=== PATIENT | male | born 1965 | race Caucasian/White ===

== ENCOUNTER 2022-09-19 14:03 | Outpatient (AMB) | payer OTHER, SELFPAY ==
--- NOTE | 2022-09-19 14:04 | MHC.OFFWIV ---
Intake Vital Signs 09/19/22 14:05 Height 5 ft 10 in BP 140/72 H Blood Pressure Location Lt brachial Position Sitting Pulse 85 Pulse Source Pulse Oximeter Temp 97.5 F Temp Source Temporal Artery Scan Pulse Oximetry (%) 97 Oxygen Delivery Method Room Air Intake Visit Reasons: EST/blood pressure issues/headaches Intake Note: Pt is here c/o having headaches and high bp. Patient Tobacco Use Status: Never used Tobacco Allergies No Known Allergies Allergy (Verified 09/19/22 14:05) Do you need a note to return to daycare/school/sports/work: No HPI HPI Comments History of Present Illness Details 57-year-old male that presents for headache and blood pressure concerns. Patient states that for the past 6 months he has been experiencing off and on headaches and thought that his blood pressure to be elevated today recently restarted his losartan again and. Edition he endorses some occasional fatigue and fluttering of his chest. Denies any chest pain or shortness of breath nausea vomiting cough, vision changes bladder or bowel symptoms weakness and difficulty speaking.. He has not seen his PCP in over a year but recently established care will be seeing them in November. [facility] Social History Patient Tobacco Use Status: Never used Tobacco Review of Systems Const All systems reviewed & are unremarkable except as noted in HPI and below Denies fever(s), Denies headache(s) and Denies weakness Eyes Reports no additional complaints ENT Reports no additional complaints and Denies headache(s) Card Reports no additional complaints, Denies chest pain, Denies leg edema and Denies dyspnea Resp Denies cough and Denies dyspnea GI Denies abdominal pain, Denies nausea and Denies vomiting Denies dysuria and Denies urinary frequency Musc Reports no additional complaints Neuro Denies headache(s) and Denies weakness Psych Reports no additional complaints Endo Reports no additional complaints Physical Exam Vital Signs: Last Vital Signs Temp 97.5 F 09/19/22 14:05 Pulse 85 09/19/22 14:05 BP 140/72 H 09/19/22 14:05 Pulse Ox 97 09/19/22 14:05 Oxygen Delivery Method Room Air 09/19/22 14:05 Const General: cooperative, no acute distress and alert Orientation/consciousness: patient oriented x3 Limitations: no limitations HEENT Head: Yes normal to inspection Ears: hearing grossly normal bilaterally and external ears normal General nose exam: Normal external nose present Eyes General: appearance normal, both eyes and all related structures Neck Neck: Yes normal visual inspection Chest Chest palpation & inspection: normal inspection of the chest Resp Effort & Inspection: normal respiratory effort, able to speak in complete sentences and no audible wheezes Auscultation: clear to auscultation bilaterally Cardio Rate: regular rate Rhythm: regular rhythm GI Inspection: Yes normal to inspection Palpation (GI): Soft to palpation and nontender Skin General skin exam: no rashes or lesions noted Neuro Other: NEURO PHYSCIAL EXAM Alert and oriented to person, place, time speech: clear, fluent CN II: visual acuity grossly intact b/l, PERRLA CN III, IV, : EOMI CN V: facial sensation grossly intact to light touch b/l CN VII: symmetric facial movement b/l, no facial droop CN VIII: hearing intact to finger rub b/l, no nystagmus CN IX, X: uvula midline CN XI: 5/5 strength with SCM and trapezius b/l CN XII: midline tongue protrusion, no atrophy or fasciculations motor: 5/5 muscle strength of UE/LE b/l, no pronator drift sensory: grossly intact b/l to light touch coordination: No dysmetria or dysdiadochokinesia with rapid alternating movement and finger to nose testing General: patient oriented x3 Psych Appearance: grossly normal Mental Status: mental status grossly normal Speech and movement: Normal speech and movement present Affect: normal affect Attitude: cooperative Thought process: Normal thought process present Thought content: Normal thought content present Assessment & Plan Assessment & Plan (1) Headache: Code(s): R51.9 - Headache, unspecified Plan 57-year-old male that presents for headache and blood pressure concerns. VSS. On exam patient presents alert and oriented no acute distress. Exam otherwise unremarkable in noted above. EKG was performed and shows normal sinus rhythm without ST segment changes. With regard to patient's headache unclear related to stress versus tension headache versus migraines in the absence of other focal neurological findings no need for additional imaging at this time. With regard to patient's fatigue could be suffering from viral illness. This time recommend continued symptomatic treatment at home welcome follow-up with his PCP patient's symptoms progress or change recommend follow-up emergency department return to clinic. Discharge instructions, follow up and treatment are discussed with patient in my usual fashion. Alternatives in treatment are also discussed. The patient will return for worsening symptoms or as needed. Advised that any labs/imaging ordered will be followed up on and contact made if further treatment needed. Counseled that patient's condition may require further evaluation and/or treatment. Symptoms of concern for worsening disorder discussed in detail in my customary manner. Patient does verbalize understanding of the plan, there are no apparent barriers to communication. The patient is given the opportunity to ask questions and have them answered to his/her satisfaction Patient Instructions: You were seen evaluated in the urgent care for multiple symptoms. This time your examination is reassuring. Few drop into worsening symptoms such as chest pain, shortness of breath, fever, worsening fatigue, difficulty speaking, weakness or any other concerning symptoms please report to the emergency department. Coding Level of Care Code Est Pt Level 3 (85709) Diagnoses Headache R51.9
[2022-09-19 14:05] VITALS: BP 140/72; PULSE 85; TEMP 36.4; O2SAT 97
== END 2022-09-19 15:40 | disposition home or self-care (01) ==
PROVIDERS: PCP Family Medicine; Visit Provider Physician Assistant
DX: R51.9 Headache, unspecified (principal)
CPT/HCPCS: 99203

== ENCOUNTER 2022-11-27 14:59 | Outpatient (AMB) | payer OTHER, SELFPAY ==
--- NOTE | 2022-11-27 15:01 | A.OFFPC_ITS ---
Vital Signs 11/27/22 15:03 Height 5 ft 10 in Weight 218 lb 6 oz BMI 31.3 BP 132/82 Blood Pressure Location Lt brachial Position Sitting Pulse 71 Pulse Source Pulse Oximeter Pulse Oximetry (%) 98 Oxygen Delivery Method Room Air Intake Visit Reasons: New Patient/BP Intake Note: Patient is here as a new patient with c/o headaches. Patient is concerned about lowered energy level. Allergies No Known Allergies Allergy (Verified 11/27/22 15:05) Tobacco use date assessed: 11/27/22 Dental Screening Dental Screen Date: 11/27/22 Did you have a dental visit in the last 12 months?: Yes Did you have a dental problem in the last 6 months where you did not have access to dental care?: No Was dental information given to patient?: Patient has dentist HPI New Patient/BP HPI Details New patient Prior PCP:?Aleida Last office visit/CPE: Acute issue(s): Low Energy Headaches b/L Hips PMHx: HTN SurgHx: GB, Tonsillitis FHx: Mom: Healthy. Dad: CAD & Stents SocHx: Patient drives truck for living. nonsmoker, EtOH none, No drugs. PFSH Surgical History (Updated 11/27/22 @ 15:08 by Riya Carmona CMA) Hx of cholecystectomy Family History (Updated 11/27/22 @ 15:10 by Riya Carmona CMA) Maternal Grandfather Heart trouble Paternal Grandfather Substance abuse Social History Housing: House Patient Tobacco Use Status: Never used Tobacco e-Cigarette/Vaping Use: Never Used service: No Current occupational status: employed Current occupation: postal service Cognitive needs: No Hearing needs: No Vision needs: No Questionnaire PHQ-9 Over the last 2 weeks, how often have you been bothered by any of the following problems? 1. Little interest or pleasure in doing things: not at all 2. Feeling down, depressed, or hopeless: not at all 3. Trouble falling or staying asleep, or sleeping too much: not at all 4. Feeling tired or having little energy: not at all 5. Poor appetite or overeating: not at all 6. Feeling bad about yourself - or that you are a failure or have let yourself or your family down: not at all 7. Trouble concentrating on things, such as reading the newspaper or watching television: not at all 8. Moving or speaking so slowly that other people could have noticed. Or the opposite - being so fidgety or restless that you have been moving around a lot more than usual: not at all 9. Thoughts that you would be better off or of hurting yourself in some way: not at all Total score: 0 Source: Developed by Drs. Kyle Fields, Kristen Georges, Deric Caputo and colleagues, with an educational humberto from [employer]. Thrive Questionnaire I am a: Patient What is your living situation today?: I have a steady place to live Within the past 12 months, did the food you bought not last and you didn't have the money to get more?: Never true Within the past 12 months, did you worry whether your food would run out before you got money to buy more?: Never true Do you have trouble paying for medicines?: No Do you have trouble getting transportation to medical appointments?: No Do you have trouble paying your heating and electricity bill?: No Do you have trouble taking care of your child, family member or friend?: No Do you have trouble with day-to-day activities such as bathing, preparing meals, shopping, managing finances, etc.?: No Are you currently unemployed and looking for a job?: No Are you interested in more education?: No AUDIT C Alcohol Use Questionnaire (AUDIT-C) 1. How often do you have a drink containing alcohol?: Never 3. How often do you have six or more drinks on one occasion?: Never Total Score: 0 ULI-7 AMB Questionnaire ULI-7 Feeling nervous, anxious, or on edge: 0 = Not at all Not being able to stop or control worryin = Not at all Worrying too much about different things: 0 = Not at all Trouble relaxin = Not at all Being so restless that it is hard to sit still: 0 = Not at all Becoming easily annoyed or irritable: 0 = Not at all Feeling afraid as if something awful might happen: 0 = Not at all Total ULI-7 score (0-4 normal; 5-9 mild; 10-14 moderate; 15-21 severe): 0 Source: Developed by Kristen Balderas, Deric Caputo and colleagues, with an educational humberto from [employer]. Review of Systems Const Denies fatigue and Reports headache(s) ENT Reports headache(s) Card Denies chest pain, Denies lightheadedness, Denies dyspnea and Denies other (Palpitations) Resp Denies cough, Denies dyspnea, Denies wheezing and Denies other ( shortness of breath) Musc Denies numbness and Denies tingling Neuro Reports headache(s), Denies numbness and Denies tingling Psych Denies anxiety and Denies depression Endo Denies fatigue Aller/Immun Denies wheezing Physical exam (Primary Care) BMI result Body Mass Index 31.3 Tobacco/Smoking Status: Tobacco use Status Tobacco use date assessed 11/27/22 11/27/22 15:14 Patient Tobacco Use Status Never used Tobacco 11/27/22 15:03 e-Cigarette/Vaping Use Never Used 11/27/22 15:14 PHQ-9: PHQ-9 Score PHQ-9: Total score 0 11/27/22 15:16 Const General: no acute distress and well developed Nutritional Appearance: well nourished Orientation/consciousness: patient oriented x3 HENMT Head: Yes normocephalic and Yes atraumatic Eyes General: appearance normal, both eyes and all related structures Pupils: Equal, round and reactive pupils present EOM: EOMs intact bilaterally Resp Effort & Inspection: normal respiratory effort Auscultation: clear to auscultation bilaterally Cardio Rate: regular rate Rhythm: regular rhythm Heart sounds: S1 normal heart sound present, S2 normal heart sound present, no gallops, no murmurs and no rubs Neuro General: patient oriented x3 and gait normal Cranial nerves: Yes Equal, round and reactive pupils present Psych Affect: normal affect Assessment and Plan Assessment & Plan (1) Headache: Code(s): R51.9 - Headache, unspecified Plan: Band like, tension style headache and some neck tension with popping/snapping sounds with turning head Cranial nerves intact Likely neck muscle tension with tension headaches Will refer to physical therapy Advised ice/heat Can use ibuprofen or Tylenol OTC He will let me know if not improving (2) Low energy: Code(s): R53.83 - Other fatigue Plan: Check labs Denies symptoms related to sleep apnea Does work 2/3 shift however. (3) Bilateral hip pain: Code(s): M25.551 - Pain in right hip; M25.552 - Pain in left hip Plan: Pain seems to originate at low back and SI joints and wraps Around lateral hips bilaterally Referred to physical therapy (4) Cervicalgia: Code(s): M54.2 - Cervicalgia Plan: Likely chronic muscle strain, tension and tendinopathy Referred to physical therapy (5) Low back pain: Code(s): M54.50 - Low back pain, unspecified Plan: As above, referred to physical therapy (6) Laboratory exam ordered as part of routine general medical examination: Code(s): Z00.00 - Encounter for general adult medical examination without abnormal findings Plan: Check labs Orders: Orders Prostate Specific Antigen Scr Today Z12.5 - Encounter for screening for malignant neoplasm of prostate UA and rflx microscopic Today Z00.00 - Encounter for general adult medical examination without abnormal findings TSH reflex Free T4 Today Z00.00 - Encounter for general adult medical examination without abnormal findings Comprehensive [place]. Panel Fast Today Z00.00 - Encounter for general adult medical examination without abnormal findings Lipid Panel Today Z00.00 - Encounter for general adult medical examination without abnormal findings Microalbumin, Random (w Creat) Today I10 - Essential (primary) hypertension Testosterone, Free/Total Today R53.83 - Other fatigue PT Evaluation and Treatment Today M25.551 - Pain in right hip, M25.552 - Pain in left hip, M54.2 - Cervicalgia, M54.50 - Low back pain, unspecified, R51.9 - Headache, unspecified Coding Level of Care Code New Pt Level 4 (60113) Diagnoses Headache R51.9 Low energy R53.83 Bilateral hip pain M25.551; M25.552 Cervicalgia M54.2 Low back pain M54.50 Laboratory exam ordered as part of routine general medical examination Z00.00
[2022-11-27 15:03] VITALS: BP 132/82; PULSE 71; O2SAT 98; BMI 31.3
== END 2022-11-27 15:57 | disposition home or self-care (01) ==
PROVIDERS: PCP Family Medicine; Visit Provider Family Medicine
DX: R51.9 Headache, unspecified (principal); R53.83 Other fatigue; M25.551 Pain in right hip; M25.552 Pain in left hip; M54.2 Cervicalgia; M54.50 Low back pain, unspecified; Z00.00 Encounter for general adult medical examination without abnormal findings
CPT/HCPCS: 99204

== ENCOUNTER 2023-01-26 10:14 | Outpatient (REF) | payer OTHER, SELFPAY ==
[2023-01-26 11:22] LABS: MANUAL DIFF FLAG NO
[2023-01-26 11:23] LABS: Basophils Percent Auto 0.7 % (0-2); Eosinophils Absolute Auto 0.1 X10*3/uL (0.0-0.4); Eosinophils Percent Auto 2.4 % (0-4); Hematocrit 44.3 % (42.0-52.0); Hemoglobin 15.4 g/dl (14.0-18.0); Imm Gran Abs Auto 0.01 X10*3/uL (0.00-0.03); Imm Gran Pct Auto 0.2 % (0.0-0.4); Lymphocytes Absolute Auto 2.2 X10*3/uL (1.2-4.9); Lymphocytes Percent Auto 36.7 % (20-40); Mean Corpuscular HGB Conc 34.8 g/dl (31.0-36.0); Mean Corpuscular Hemoglobin 28.4 pg (27.0-33.0); Mean Corpuscular Volume 81.7 fL (80.0-98.0); Monocytes Absolute Auto 0.6 X10*3/uL (0.1-1.2); Monocytes Percent Auto 9.8 % (2-11); Neutrophils Percent Auto 50.2 % (45-73); Platelet Count 210 X10*3/uL (160-400); Red Blood Count 5.42 X10*6/uL (4.60-5.80); Red Cell Distribution Width 12.2 % (11.0-16.0); White Blood Count 5.9 X10*3/uL (4.8-10.8)
[2023-01-26 11:28] LABS: Appearance Urine Clear; Color Urine Yellow; Glucose Urine UA Negative (Negative); Leukocyte Esterase Urine Negative (Negative); Nitrite Urine Negative (Negative); PH 6.5 (5.0-9.0); Urine Blood Negative (Negative); Urine Ketones Negative (Negative); Urine Protein Negative (Neg-Trace)
[2023-01-26 12:12] LABS: Prostate Specific Antigen Scr 4.66 ng/mL (<0.05-4.0)
[2023-01-26 12:21] LABS: TSH reflex Free T4 4.11 uIU/mL (0.32-4.0)
[2023-01-26 12:30] LABS: Anion Gap 11 (12-20)
[2023-01-26 12:35] LABS: Alanine Aminotransferase 30 U/L (0-40); Albumin Level 4.3 g/dL (3.5-5.0); Alkaline Phosphatase 56 U/L (39-117); Aspartate Amino Transferase 25 U/L (5-37); Bilirubin Total 0.9 mg/dL (0.0-1.0); Blood Urea Nitrogen 12 mg/dL (9-16); Calcium 9.4 mg/dL (8.4-10.2); Carbon Dioxide 29 mmol/L (22-29); Chloride 104 mmol/L (96-108); Cholesterol 154 mg/dL (<200); Estimated Glomerular Filt Rate > 60; Glucose Fasting 95 mg/dL (60-99); HDL Cholesterol 31 mg/dL (>40); LDL Cholesterol Calculated 96 mg/dL (<100); Potassium 4.1 mmol/L (3.3-5.1); Sodium 140 mmol/L (135-145); Total Protein 7.2 g/dL (6.5-8.0); Triglycerides 137 mg/dL (<150)
[2023-01-26 12:51] LABS: Creatinine Urine 234.25 mg/dL; Microalbum/Creatinine Ratio Ur 5.1 ug/mg cr (<30)
[2023-01-26 12:58] LABS: Free T4 (Free Thyroxine) 1.01 ng/dL (0.71-1.85)
[2023-01-31 15:23] LABS: Testosterone, Free 94.2 pg/mL (35.0-155.0); Testosterone, Total 585 ng/dL (250-1100)
== END 2023-01-26 10:15 | disposition home or self-care (01) ==
LOC: HO.WFDLDS 10:14
PROVIDERS: Visit Provider Family Medicine
DX: Z00.00 Encounter for general adult medical examination without abnormal findings (principal); R51.9 Headache, unspecified; I10 Essential (primary) hypertension; R53.83 Other fatigue; Z12.5 Encounter for screening for malignant neoplasm of prostate
CPT/HCPCS: 36415; 80053; 80061; 81003; 82043; 82570; 84153; 84402; 84403; 84439; 84443; 85025

== ENCOUNTER 2023-02-08 13:51 | Outpatient (AMB) | payer OTHER, SELFPAY ==
--- NOTE | 2023-02-08 14:06 | A.OFFPC_ITS ---
Vital Signs 02/08/23 14:07 Height 5 ft 10 in Weight 214 lb BMI 30.7 BP 130/78 Blood Pressure Location Lt brachial Position Sitting Pulse 86 Pulse Source Pulse Oximeter Pulse Oximetry (%) 98 Oxygen Delivery Method Room Air Intake Visit Reasons: CPE with f/u labs and health maint. Intake Note: Patient is here for his physical today, and to follow up on labs. Patient c/o left shoulder pain. Allergies No Known Allergies Allergy (Verified 11/27/22 15:05) Tobacco use date assessed: 02/08/23 HPI CPE with f/u labs and health maint. HPI Details 57 y/o male presents for a CPE with f/u labs and health maintenance. Labs were drawn 01/26/23. Reviewed labs with pt. Triglycerides 137. TC 154. LDL 96. HDL low at 31. PSA elevated 4.66. TSH elevated at 4.11 uIU/mL. Free T4 within normal range. Pt has complaints of L shoulder pain. HPI Comments History of Present Illness Details Documentation assistance for Ethan Back MD, was provided by Pradeep Lepe,? [employer] on 02/08/2023 2:57 PM [place]. Harris, Dr. Back, have read, observed, and verified documentation.? PFSH Surgical History (Updated 11/27/22 @ 15:08 by Riya Carmona [facility]) Hx of cholecystectomy Family History (Updated 11/27/22 @ 15:10 by Riya Carmona [facility]) Maternal Grandfather Heart trouble Paternal Grandfather Substance abuse Social History Housing: House Patient Tobacco Use Status: Never used Tobacco e-Cigarette/Vaping Use: Never Used service: No Current occupational status: employed Current occupation: postal service Cognitive needs: No Hearing needs: No Vision needs: No Review of Systems Const Reports fatigue, Denies headache(s) and Denies weakness Eyes Denies change in vision ENT Denies dizziness, Denies headache(s), Denies hearing loss, Denies nasal congestion, Denies sinus pain, Denies sinus pressure and Denies sore throat Card Denies chest pain, Denies lightheadedness, Denies dyspnea and Denies other (palpitations) Resp Denies cough, Denies dyspnea and Denies wheezing GI Denies abdominal pain, Denies melena, Denies hematochezia, Denies change in bowel habits, Denies dyspepsia and Denies nausea Denies hematuria and Denies dysuria Musc Denies abnormal gait, Denies myalgias, Denies arthralgias, Denies numbness and Denies tingling Skin/Breast Denies rash, Denies unusual bruising and Denies wounds Neuro Denies abnormal gait, Denies dizziness, Denies headache(s), Denies memory loss, Denies numbness, Denies Sensory deficit (Neuro), Denies tingling and Denies weakness Psych Denies anxiety, Denies depression and Denies memory loss Endo Reports fatigue Ulisses/Lymph Denies easy bleeding and Denies easy bruising Aller/Immun Denies wheezing Physical exam (Primary Care) Vital Signs: Last Vital Signs Pulse 86 02/08/23 14:07 BP 130/78 02/08/23 14:07 Pulse Ox 98 02/08/23 14:07 Oxygen Delivery Method Room Air 02/08/23 14:07 BMI result Body Mass Index 30.7 Tobacco/Smoking Status: Tobacco use Status Tobacco use date assessed 02/08/23 02/08/23 14:14 Patient Tobacco Use Status Never used Tobacco 02/08/23 14:07 e-Cigarette/Vaping Use Never Used 02/08/23 14:07 Const General: no acute distress, well developed, alert and awake Nutritional Appearance: well nourished Orientation/consciousness: patient oriented x3 HENMT Head: Yes normocephalic and Yes atraumatic Ears: hearing grossly normal bilaterally and TM's normal bilaterally General nose exam: Normal external nose present and Normal nares present Mouth: Normal oral and palatal mucosa present and moist mucous membranes Teeth and gingiva: dentition normal Throat: Yes posterior oropharynx normal Eyes General: appearance normal, both eyes and all related structures Pupils: Equal, round and reactive pupils present and Pupil accommodation reflex normal EOM: EOMs intact bilaterally Neck Neck: Yes normal visual inspection, Yes no lymphadenopathy and Yes trachea midline Thyroid: Thyroid normal Carotids: no bruits Lymphatic: no lymphadenopathy noted Chest Chest palpation & inspection: normal inspection of the chest Resp Effort & Inspection: normal respiratory effort Auscultation: clear to auscultation bilaterally Cardio Rate: regular rate Rhythm: regular rhythm Heart sounds: S1 normal heart sound present, S2 normal heart sound present, no gallops, no murmurs and no rubs Bruits: no abdominal aortic bruits and no carotid bruits GI Palpation (GI): No Abdominal aortic bruit present, Soft to palpation, nontender, No hepatosplenomegaly present and No Rebound tenderness present Auscultation: normal bowel sounds General: Yes no CVA tenderness Back/Spine/Pelvis Back: no CVA tenderness Cervical Spine: cervical ROM normal and No Cervical spine tenderness Thoracic/Lumbar Spine: thoraco-lumbar ROM normal, No pain with thoraco-lumbar ROM, No thoracic spinal tenderness and No lumbar spinal tenderness Skin Lesions: no lesions Rashes: no rashes Trauma: no lacerations or abrasions Wounds: no wounds Nails: normal Neuro General: patient oriented x3 Cranial nerves: Yes Equal, round and reactive pupils present Cognition (Neuro): normal cognition Gait exam (Neuro): Normal gait present Motor exam (neuro): 5/5 motor strength present throughout Sensory Exam: No Sensory deficit (Neuro) Deep tendon reflexes (DTR's): Right patellar reflex intensity grade: 2+ and Left patellar reflex intensity grade: 2+ Extrem Other: Anterior shoulder pain at the AC joint General: Yes normal to inspection and No edema Psych Appearance: grossly normal Affect: normal affect Attitude: cooperative Thought process: Normal thought process present Office Procedures Flu Questionnaire Does the patient have a severe egg allergy?: No Does the patient have severe life threatening allergies?: No Does the patient have a fever or illness today?: No Has the patient ever had Guillain-Munden Syndrome?: No Has the patient ever had any past reaction to a flu shot?: No Immunizations flu vacc [id number] 6mos up(PF) 60 mcg(15 mcgx4)/0.5 mL IM syringe Performing Provider: Ethan Back MD Performing Location: [facility] Documented (not given) by: Riya Carmona CMA on 02/08/23 14:18 Reason Not Given: Patient Refused Assessment and Plan Assessment & Plan (1) Adult general medical exam: Code(s): Z00.00 - Encounter for general adult medical examination without abnormal findings Plan: 57-year-old?male?presents?for?complete?physical?exam Encouraged?healthy?diet?with?active?lifestyle?and?plenty?of?exercise (2) Left shoulder pain: Code(s): M25.512 - Pain in left shoulder Plan: Pain?at?left?AC?joint.??Likely?mild?AC?strain He?is?using?heat?and?I?encouraged?relative?rest Should?improve?on?its?own.??He?can?let?me?know?if?not?improving?or?worsens (3) Elevated PSA: Code(s): R97.20 - Elevated prostate specific antigen [PSA] Plan: Mildly?elevated?PSA?level.??Will?repeat?this.??If?still?elevated?we?discussed?a? referral?to?urology. (4) Low HDL (under 40): Code(s): E78.6 - Lipoprotein deficiency Plan: Encouraged?increased?exercise?at?a?diet?higher?in?[place]?3?fatty?acid (5) Elevated TSH: Code(s): R79.89 - Other specified abnormal findings of blood chemistry Plan: Mildly?elevated?TSH.??Patient?has?had?some?complaints?of?fatigue.??I?think?it?is ?more?likely?that?his?fatigue?is?secondary?to?working?2/3?shift. Repeating?thyroid?hormone?levels (6) Screening for colon cancer: Code(s): Z12.11 - Encounter for screening for malignant neoplasm of colon Plan: Patient?declines?colonoscopies?and?we?discussed?Cologuard?test?but?he?says?he?wi ll?think?about?this. (7) Screening for prostate cancer: Code(s): Z12.5 - Encounter for screening for malignant neoplasm of prostate Plan: As?above,?PSA?level?is?elevated. Repeating?PSA (8) Fatigue: Code(s): R53.83 - Other fatigue Plan: Likely?secondary?to?working?2/3?shift Work?on?good?sleep?hygiene.??He?is?considering?changing?shift He?did?not?have?symptoms?of?sleep?apnea. (9) Change in hearing: Code(s): H91.90 - Unspecified hearing loss, unspecified ear Plan: Offered?audiology?but?he?does?not?feel?that?he?would?use?am plification?and?does?not?want?to?do?anything?about?it?right?now. He?will?let?me?know?if?symptoms?worsen Orders: Orders 2 Influenza [id number] Immunization Today Z23 - Encounter for immunization Thyroid Stimulating Hormone Today E03.9 - Hypothyroidism, unspecified, R79.89 - Other specified abnormal findings of blood chemistry Basic Metabolic Panel Fasting Today R79.89 - Other specified abnormal findings of blood chemistry Lipid Panel Today E78.6 - Lipoprotein deficiency, Z00.00 - Encounter for general adult medical examination without abnormal findings Free T4 (Free Thyroxine) Today E03.9 - Hypothyroidism, unspecified, R79.89 - Other specified abnormal findings of blood chemistry Triiodothyronine T3 Total Today E03.9 - Hypothyroidism, unspecified, R79.89 - Other specified abnormal findings of blood chemistry Prostate Specific Antigen Scr Today R97.20 - Elevated prostate specific antigen [PSA], Z12.5 - Encounter for screening for malignant neoplasm of prostate Coding Level of Care Code Est Pt Level 4 (19268) Est Pt Prev Care 40-64y(59888) Diagnoses Adult general medical exam Z00.00 Left shoulder pain M25.512 Elevated PSA R97.20 Low HDL (under 40) E78.6 Elevated TSH R79.89 Screening for colon cancer Z12.11 Screening for prostate cancer Z12.5 Fatigue R53.83 Change in hearing H91.90
[2023-02-08 14:07] VITALS: BP 130/78; PULSE 86; O2SAT 98; BMI 30.7
== END 2023-02-08 15:23 | disposition home or self-care (01) ==
PROVIDERS: PCP Family Medicine; Visit Provider Family Medicine
DX: Z00.00 Encounter for general adult medical examination without abnormal findings (principal); M25.512 Pain in left shoulder; R97.20 Elevated prostate specific antigen [PSA]; E78.6 Lipoprotein deficiency; R79.89 Other specified abnormal findings of blood chemistry; Z12.11 Encounter for screening for malignant neoplasm of colon; Z12.5 Encounter for screening for malignant neoplasm of prostate; R53.83 Other fatigue; H91.90 Unspecified hearing loss, unspecified ear
CPT/HCPCS: 99396

== ENCOUNTER 2023-03-06 12:39 | Outpatient (REF) | payer OTHER, SELFPAY ==
[2023-03-06 14:47] LABS: Anion Gap 11 (12-20); Blood Urea Nitrogen 12 mg/dL (9-16); Calcium 9.6 mg/dL (8.4-10.2); Carbon Dioxide 28 mmol/L (22-29); Chloride 107 mmol/L (96-108); Cholesterol 168 mg/dL (<200); Estimated Glomerular Filt Rate > 60; Glucose Fasting 99 mg/dL (60-99); HDL Cholesterol 34 mg/dL (>40); LDL Cholesterol Calculated 102 mg/dL (<100); Potassium 4.5 mmol/L (3.3-5.1); Sodium 141 mmol/L (135-145); Triglycerides 164 mg/dL (<150)
[2023-03-06 15:01] LABS: Free T4 (Free Thyroxine) 0.92 ng/dL (0.71-1.85); Thyroid Stimulating Hormone 2.94 uIU/mL (0.32-4.0)
[2023-03-07 09:19] LABS: Triiodothyronine T3 Total 148 ng/dL (76-181)
== END 2023-03-06 12:40 | disposition home or self-care (01) ==
LOC: HO.WFDLDS 12:39
PROVIDERS: Visit Provider Family Medicine
DX: Z00.00 Encounter for general adult medical examination without abnormal findings (principal); Z12.5 Encounter for screening for malignant neoplasm of prostate; E78.6 Lipoprotein deficiency; E03.9 Hypothyroidism, unspecified; R97.20 Elevated prostate specific antigen [PSA]; R79.89 Other specified abnormal findings of blood chemistry
CPT/HCPCS: 36415; 80048; 80061; 84153; 84439; 84443; 84480

== ENCOUNTER 2023-03-14 15:35 | Outpatient (AMB) | payer OTHER, SELFPAY ==
--- NOTE | 2023-03-14 15:54 | MHC.PC.OV ---
Vital Signs 03/14/23 16:04 Height 5 ft 10 in BP 146/82 H Blood Pressure Location Rt brachial Position Sitting Respiration 13 Pulse 91 Pulse Source Pulse Oximeter Pulse Oximetry (%) 97 Oxygen Delivery Method Room Air Intake Visit Reasons: Follow-up elevated?PSA,?elevated?TSH Intake Note: Patient is here to follow up on labs. Patient reports he recieved a call from another office wanting to make an appointment to discuss his PSA. Patient states he informed them he wanted to discuss with Dr. Back first. patient also reports he lifted something heavy and pulled a muscle in his RLQ. 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 Labs were drawn 03/06/23. Reviewed labs with pt. Triglycerides 164. LDL 102. HDL low at 34. PSA worsened from 4.66 to 5.20. TSH improved from 4.11 to 2.94. Pt reports complaints of a hernia and mentions he might have had surgery there before. PFSH Surgical History (Updated 11/27/22 @ 15:08 by Riya Carmona CMA) Hx of cholecystectomy Family History (Updated 11/27/22 @ 15:10 by Riya Carmona CMA) Maternal Grandfather Heart trouble Paternal Grandfather Substance abuse Social History Housing: House Patient Tobacco Use Status: Never used Tobacco e-Cigarette/Vaping Use: Never Used service: No Current occupational status: employed Current occupation: postal service Cognitive needs: No Hearing needs: No Vision needs: No Physical exam (Primary Care) Vital Signs: Last Vital Signs Pulse 91 03/14/23 16:04 Resp 13 03/14/23 16:04 BP 146/82 H 03/14/23 16:04 Pulse Ox 97 03/14/23 16:04 Oxygen Delivery Method Room Air 03/14/23 16:04 Tobacco/Smoking Status: Tobacco use Status Tobacco use date assessed 02/08/23 03/14/23 15:55 Patient Tobacco Use Status Never used Tobacco 03/14/23 15:55 e-Cigarette/Vaping Use Never Used 03/14/23 15:55 Assessment and Plan Assessment & Plan (1) Elevated PSA: Code(s): R97.20 - Elevated prostate specific antigen [PSA] Plan: PSA?still?elevated Had?referred?him?to?Urology?but?he?did?not?schedule?appointment?yet. Encouraged?him?to?schedule?appointment?and?gave?him?phone?number?for?Urology.??He?says?he?will?call. (2) Hernia: Code(s): K46.9 - Unspecified abdominal hernia without obstruction or gangrene Plan: Mild?spontaneously?reducing?right?inguinal?impulse?and?patient?has?a?history?of?hernia?with?surgery. Offered?referral?to?surgeon?for?consult?and?or?ultrasound. Patient?wants?to?hold?off?on?these. Encouraged?him?to?go?to?the?ED?if?he?has?a?non?spontaneously?reducing?hernia?or?let?me?know?if?pain?is?worsening?or?he?needs?to?manually?reduce?a?hernia. 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
[2023-03-14 16:04] VITALS: BP 146/82; PULSE 91; RESP 13; O2SAT 97
== END 2023-03-14 16:44 | disposition home or self-care (01) ==
PROVIDERS: PCP Family Medicine; Visit Provider Family Medicine
DX: R97.20 Elevated prostate specific antigen [PSA] (principal); K46.9 Unspecified abdominal hernia without obstruction or gangrene; R79.89 Other specified abnormal findings of blood chemistry; E78.6 Lipoprotein deficiency
CPT/HCPCS: 99214

== ENCOUNTER 2023-04-18 14:04 | Outpatient (AMB) | payer OTHER, SELFPAY ==
--- NOTE | 2023-04-18 14:19 | MHC.OFFVIS ---
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 Back. He presents to the office today as a new patient for an elevated PSA. In discussion with the patient today reports to be doing and feeling well. He reports having followed up with his PCP at which time his PSA was noted to be elevated and recommendations were made for urology referral. These results were reviewed with the patient today. PSAs are as follows: 02/01--4.7 03/03--5.2 Testosterone 02/01-- 585 Discussed at length potential causes for elevated PSA. Discussed further workup with redraw of PSA with no sex the night before, no caffeine morning of, and no heavy lifting 1-2 days prior. Discussed obtaining retroperitoneal ultrasound for further assessment evaluation. He currently denies any bothersome urinary issues or concerns. He reports having recently followed up with PCP for right groin strain and had been doing well up until a few days ago when he attempted to lift a heavy log. In office urinalysis results reviewed with the patient today. He otherwise offers no other issues or concerns at this time. [facility] Surgical History Hx of cholecystectomy Family History Maternal Grandfather Heart trouble Paternal Grandfather Substance abuse Social History Housing: House Patient Tobacco Use Status: Never used Tobacco e-Cigarette/Vaping Use: Never Used service: No Current occupational status: employed Current occupation: postal service Cognitive needs: No Hearing needs: No Vision needs: No Review of Systems Const All systems reviewed & are unremarkable except as noted in HPI and below Physical Exam Const General: cooperative, healthy appearing, comfortable, no acute distress, well developed, alert and awake Orientation/consciousness: patient oriented x3 Limitations: no limitations HEENT Head: Yes normal to inspection, Yes normocephalic and Yes atraumatic Ears: hearing grossly normal bilaterally Eyes General: appearance normal, both eyes and all related structures Neck Neck: Yes normal visual inspection and Yes trachea midline Chest Chest palpation & inspection: normal inspection of the chest Resp Effort & Inspection: normal respiratory effort and able to speak in complete sentences Cardio Rate: regular rate GI Inspection: Yes normal to inspection General: Yes no CVA tenderness Back/Spine/Pelvis Back: no CVA tenderness Skin General skin exam: no rashes or lesions noted Neuro General: patient oriented x3 Extrem General: Yes normal to inspection Psych Appearance: grossly normal and well kempt Mental Status: mental status grossly normal Speech and movement: Normal speech and movement present and Clear speech present Affect: normal affect Attitude: cooperative Thought process: Normal thought process present Thought content: Normal thought content present Insight: Fair insight present (Psych) Judgement: Fair judgement present (Psych) Results AMB Urinalysis, Automated UA Leukoctes 0 Kaylee/uL Last Edit by [employer] on 04/18/23 14:37 UA Nitrite Negative Last Edit by [employer] on 04/18/23 14:37 UA Urobilinogen 0.2 mg/dL Last Edit by [employer] on 04/18/23 14:37 UA Protein 0 mg/dL Last Edit by [employer] on 04/18/23 14:37 UA pH 8.0 Last Edit by [employer] on 04/18/23 14:37 UA Blood 0 New/uL Last Edit by [employer] on 04/18/23 14:37 UA Specific [place] 1.010 Last Edit by [employer] on 04/18/23 14:37 UA Ketone Negative Last Edit by [employer] on 04/18/23 14:37 UA Bilirubin 0 mg/dL Last Edit by [employer] on 04/18/23 14:37 UA Glucose 0 mg/dL Last Edit by [employer] on 04/18/23 14:37 Results Reviewed Results Reviewed: Laboratory Last Values Urine pH (Auto) 8.0 04/18/23 14:20 Specific [place] (Auto) 1.010 04/18/23 14:20 Urine Protein (Auto) 0 mg/dL 04/18/23 14:20 Glucose (UA)(Auto) 0 mg/dL 04/18/23 14:20 Urine Ketones (Auto) Negative 04/18/23 14:20 Urine Blood (Auto) 0 New/uL 04/18/23 14:20 Urine Nitrite (Auto) Negative 04/18/23 14:20 Urine Bilirubin (Auto) 0 mg/dL 04/18/23 14:20 Urine Urobilinogen (Auto) 0.2 mg/dL 04/18/23 14:20 Leukocyte Esterase (Auto) 0 Kaylee/uL 04/18/23 14:20 Assessment & Plan Assessment & Plan (1) Elevated PSA: Code(s): R97.20 - Elevated prostate specific antigen [PSA] Plan In office urinalysis results reviewed with the patient today; as noted above. Discussed at length potential causes for elevated PSA. Will obtain redraw of PSA with no sex the night before, no caffeine morning of, no heavy lifting 1-2 days prior. Will obtain retroperitoneal ultrasound for further assessment evaluation. Patient currently denies any bothersome urinary issues or concerns. He reports be happy with current voiding parameters. Follow-up in 1-2 months with imaging and lab to be completed prior; or sooner with any issues, concerns, and or questions. Orders: Orders US retroperitoneal comp Today R39.9 - Unspecified symptoms and signs involving the genitourinary system, R97.20 - Elevated prostate specific antigen [PSA] AMB Urinalysis Automated Today Z13.9 - Encounter for screening, unspecified PSA,Total (Free>4and<10) Today R97.20 - Elevated prostate specific antigen [PSA] Patient Instructions: The patient had an opportunity to ask questions regarding the treatment plan. All questions were answered. Physical exam, labs, and imaging were discussed and reviewed in detail. As well as risks, benefits, and discussion of treatment choices. No major barriers to understanding were identified. The patient expressed understanding and agreement with the above treatment plan. The patient was made aware they should contact our office by phone for worsening of their current condition, the appearance of new symptoms, or with any questions or concerns. Compliance is encouraged with any medications and follow up testing that is ordered. It is a privilege to be allowed the opportunity to participate in? your urological care.? Again, if you have any questions or concerns If you have any questions or concerns please do not hesitate to contact me. The office is [phone]. This note is constructed using voice recognition software. While every effort has been made to ensure accuracy instrument sterilizer errors may have been included. Yours sincerely, MABEL Denson-TIERRA Coding Level of Care Code New Pt Level 3 (69322) Diagnoses Elevated PSA R97.20
== END 2023-04-18 15:03 | disposition home or self-care (01) ==
PROVIDERS: PCP Family Medicine; Visit Provider Nurse Practitioner Family
DX: R97.20 Elevated prostate specific antigen [PSA] (principal)
CPT/HCPCS: 99203

== ENCOUNTER → 2023-04-18 14:04 | Outpatient (BNVA) | payer OTHER, SELFPAY | PROVIDERS: PCP Family Medicine; Visit Provider Nurse Practitioner Family | DX: R97.20 Elevated prostate specific antigen [PSA] (principal); R39.9 Unspecified symptoms and signs involving the genitourinary system | CPT/HCPCS: 81003 ==

== ENCOUNTER 2023-05-21 15:01 | Outpatient (REF) | payer OTHER, SELFPAY ==
--- NOTE | ~2023-05-21 | US_ITS ---
EXAMINATION: US RETROPERITONEAL COMPLETE (RENAL) CLINICAL INFORMATION: Elevated prostate specific antigen. COMPARISON: None available. TECHNIQUE: Real-time imaging of the kidneys and bladder. FINDINGS: RIGHT KIDNEY: 11.2 x 5.9 x 6.3 cm (SAG x AP x TRV). The kidney is normal in size, contour, and echogenicity. Renal cortical thickness is normal. Small benign Bosniak class I parapelvic cyst is present which needs no additional imaging or followup. No calculi or focal parenchymal lesions. No hydronephrosis. LEFT KIDNEY: 13.3 x 6.7 x 6.0 cm (SAG x AP x TRV). The kidney is normal in size, contour, and echogenicity. Renal cortical thickness is normal. No calculi or focal parenchymal lesions. No hydronephrosis. BLADDER: Well distended and normal. Bilateral ureteral jets are demonstrated. Prevoid bladder volume is 145 mL. Postvoid bladder volume is 21.8 mL. Enlarged prostate, volume 91.4 mL. US/US retroperitoneal comp IMPRESSION: Prostatomegaly.
--- NOTE | ~2023-05-21 | US_ITS ---
EXAMINATION: US RIGHT GROIN, LOWER PELVIC AREA, LIMITED/FOLLOW UP CLINICAL INFORMATION: Right groin lower pain and hernia. COMPARISON: None available. TECHNIQUE: Targeted ultrasound images were obtained by the glass artist of the area of concern as indicated by the patient in the right groin as indicated by the patient. Radiologist was not in attendance. Images were later provided for interpretation. FINDINGS: No discrete hernia identified in the area of concern indicated by the patient in the right lower pelvic/groin region. Multiple lymph nodes are identified in this region, largest 1.5 x 0.3 x 0.7 cm with an echogenic hilum and normal cortical thickness. US/US pelvic limited IMPRESSION: 1. No discrete hernia identified in the area of concern indicated by the patient in the right lower pelvic/groin region. CT scan could be considered for further evaluation based on the clinical assessment. 2. Multiple lymph nodes are identified in this region, largest 1.5 x 0.3 x 0.7 cm with an echogenic hilum and normal cortical thickness. Management should be based on clinical assessment.
== END 2023-05-21 15:02 | disposition home or self-care (01) ==
LOC: HO.US 15:01
PROVIDERS: PCP Family Medicine; Visit Provider Nurse Practitioner Family
DX: R97.20 Elevated prostate specific antigen [PSA] (principal); R39.9 Unspecified symptoms and signs involving the genitourinary system
CPT/HCPCS: 76770; 76857

== ENCOUNTER 2023-05-30 09:51 | Outpatient (REF) | payer OTHER, SELFPAY ==
[2023-05-30 12:39] LABS: Anion Gap 11 (12-20); Blood Urea Nitrogen 10 mg/dL (9-16); Calcium 9.8 mg/dL (8.4-10.2); Carbon Dioxide 27 mmol/L (22-29); Chloride 105 mmol/L (96-108); Cholesterol 168 mg/dL (<200); Estimated Glomerular Filt Rate > 60; Glucose Fasting 79 mg/dL (60-99); HDL Cholesterol 33 mg/dL (>40); LDL Cholesterol Calculated 92 mg/dL (<100); Potassium 4.2 mmol/L (3.3-5.1); Sodium 139 mmol/L (135-145); Triglycerides 217 mg/dL (<150)
[2023-05-30 12:47] LABS: PSA,Total (Free>4and<10) 2.74 ng/mL (0.00-4.00)
== END 2023-05-30 09:52 | disposition home or self-care (01) ==
LOC: HO.WFDLDS 09:51
PROVIDERS: Referring Provider Nurse Practitioner Family; Visit Provider Family Medicine
DX: Z00.00 Encounter for general adult medical examination without abnormal findings (principal); Z12.5 Encounter for screening for malignant neoplasm of prostate; R97.20 Elevated prostate specific antigen [PSA]; E78.6 Lipoprotein deficiency
CPT/HCPCS: 36415; 80048; 80061; 81003; 84153

== ENCOUNTER 2023-05-30 13:14 | Outpatient (AMB) | payer OTHER, SELFPAY ==
--- NOTE | 2023-05-30 13:20 | A.OFFVIS_ITS ---
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 Back. He presents to the office today for follow-up. Of note, patient was seen approximately 6 weeks ago as a new patient for an elevated PSA at which time a retroperitoneal ultrasound and redraw of PSA was ordered for further assessment evaluation. These results reviewed with the patient today. PSAs are as follows: 02/01--4.7 03/03--5.2 Testosterone 02/01-- 585 06/02--2.7 Bilateral kidneys with no calculi, lesions, and or hydronephrosis. Small right benign Bosniak class 1 peripelvic cyst which requires no additional imaging or follow-up per radiology report. The bladder is well distended and normal. Bilateral ureteral jets are demonstrated. Pre void bladder volume is approximately 150 mL. Postvoid bladder volume is approximately 20 mL. Prostate volume is approximately 92ml's. Also discussed ultrasound of right groin noting no discrete hernia. Discussed at length potential causes for elevated PSA. Discussed intermittent right-sided groin pain likely related to groin strain. Offered referral to physical therapy however patient does not feel this is necessary at this time as pain is very infrequent. In office urinalysis results reviewed with the patient today. He otherwise denies any bothersome urinary issues or concerns. He denies urinary urgency, urinary frequency, incontinence, nocturia, hematuria, dysuria, foul smelling urine, changes to urinary stream, flank pain, fever, and or chills. He is happy with his current voiding parameters. Discussed prostatomegaly noted on ultrasound. Discussed trial finasteride verses further assessment evaluation with in office cystoscopy. However patient does not wish to undergo further interventions at this time. He otherwise offers no other issues or concerns. PFSH Surgical History Hx of cholecystectomy Family History Maternal Grandfather Heart trouble Paternal Grandfather Substance abuse Social History Housing: House Patient Tobacco Use Status: Never used Tobacco e-Cigarette/Vaping Use: Never Used service: No Current occupational status: employed Current occupation: postal service Cognitive needs: No Hearing needs: No Vision needs: No Review of Systems Const All systems reviewed & are unremarkable except as noted in HPI and below Physical Exam Const General: cooperative, healthy appearing, comfortable, no acute distress, well developed, alert and awake Orientation/consciousness: patient oriented x3 Limitations: no limitations HEENT Head: Yes normal to inspection, Yes normocephalic and Yes atraumatic Ears: hearing grossly normal bilaterally Eyes General: appearance normal, both eyes and all related structures Neck Neck: Yes normal visual inspection and Yes trachea midline Chest Chest palpation & inspection: normal inspection of the chest Resp Effort & Inspection: normal respiratory effort and able to speak in complete sentences Cardio Rate: regular rate GI Inspection: Yes normal to inspection General: Yes no CVA tenderness Back/Spine/Pelvis Back: no CVA tenderness Skin General skin exam: no rashes or lesions noted Neuro General: patient oriented x3 Extrem General: Yes normal to inspection Psych Appearance: grossly normal and well kempt Mental Status: mental status grossly normal Speech and movement: Normal speech and movement present and Clear speech present Affect: normal affect Attitude: cooperative Thought process: Normal thought process present Thought content: Normal thought content present Insight: Fair insight present (Psych) Judgement: Fair judgement present (Psych) Results AMB Urinalysis, Automated UA Leukoctes 0 Kaylee/uL Last Edit by [employer] Martha on 05/30/23 13:45 UA Nitrite Negative Last Edit by [email or web address] on 05/30/23 13:45 UA Urobilinogen 0.2 mg/dL Last Edit by Gezlongvijay Thomas on 05/30/23 13:45 UA Protein 0 mg/dL Last Edit by [employer] Martha on 05/30/23 13:45 UA pH 7.0 Last Edit by [employer] Martha on 05/30/23 13:45 UA Blood 0 New/uL Last Edit by [employer] Martha on 05/30/23 13:45 UA Specific [place] 1.015 Last Edit by Sofia Thomas on 05/30/23 13:45 UA Ketone Negative Last Edit by Sofia Thomas on 05/30/23 13:45 UA Bilirubin 0 mg/dL Last Edit by Sofia Thomas on 05/30/23 13:45 UA Glucose 0 mg/dL Last Edit by Sofia Thomas on 05/30/23 13:45 Results Reviewed Results Reviewed: Laboratory Last Values Urine pH (Auto) 7.0 05/30/23 13:29 Specific [place] (Auto) 1.015 05/30/23 13:29 Urine Protein (Auto) 0 mg/dL 05/30/23 13:29 Glucose (UA)(Auto) 0 mg/dL 05/30/23 13:29 Urine Ketones (Auto) Negative 05/30/23 13:29 Urine Blood (Auto) 0 New/uL 05/30/23 13:29 Urine Nitrite (Auto) Negative 05/30/23 13:29 Urine Bilirubin (Auto) 0 mg/dL 05/30/23 13:29 Urine Urobilinogen (Auto) 0.2 mg/dL 05/30/23 13:29 Leukocyte Esterase (Auto) 0 Kaylee/uL 05/30/23 13:29 Date of Service: 05/21/23 EXAMINATION: US RETROPERITONEAL COMPLETE (RENAL) FINDINGS: RIGHT KIDNEY: 11.2 x 5.9 x 6.3 cm (SAG x AP x TRV). The kidney is normal in size, contour, and echogenicity. Renal cortical thickness is normal. Small benign Bosniak class I parapelvic cyst is present which needs no additional imaging or followup. No calculi or focal parenchymal lesions. No hydronephrosis. LEFT KIDNEY: 13.3 x 6.7 x 6.0 cm (SAG x AP x TRV). The kidney is normal in size, contour, and echogenicity. Renal cortical thickness is normal. No calculi or focal parenchymal lesions. No hydronephrosis. BLADDER: Well distended and normal. Bilateral ureteral jets are demonstrated. Prevoid bladder volume is 145 mL. Postvoid bladder volume is 21.8 mL. Enlarged prostate, volume 91.4 mL. IMPRESSION: Prostatomegaly. Date of Service: 05/21/23 EXAMINATION: US RIGHT GROIN, LOWER PELVIC AREA, LIMITED/FOLLOW UP FINDINGS: No discrete hernia identified in the area of concern indicated by the patient in the right lower pelvic/groin region. Multiple lymph nodes are identified in this region, largest 1.5 x 0.3 x 0.7 cm with an echogenic hilum and normal cortical thickness. IMPRESSION: 1. No discrete hernia identified in the area of concern indicated by the patient in the right lower pelvic/groin region. CT scan could be considered for further evaluation based on the clinical assessment. 2. Multiple lymph nodes are identified in this region, largest 1.5 x 0.3 x 0.7 cm with an echogenic hilum and normal cortical thickness. Management should be based on clinical assessment. Assessment & Plan Assessment & Plan (1) Elevated PSA: Code(s): R97.20 - Elevated prostate specific antigen [PSA] (2) Enlarged prostate: Code(s): N40.0 - Benign prostatic hyperplasia without lower urinary tract symptoms Plan In office urinalysis results reviewed with the patient today; as noted above. Recent PSA results reviewed with the patient today; as noted above. Recent retroperitoneal ultrasound results reviewed with the patient today; as noted above. Recent right groin ultrasound results reviewed with the patient today; as noted above. Discussed potential causes for elevated PSA as well as prostatomegaly. Discussed further treatment options with trial of finasteride verses in office cystoscopy for further assessment evaluation; this was discussed at length Discussed referral to physical therapy for potential right-sided groin strain however patient declines at this time He denies any bothersome urinary issues or concerns. He reports be happy with current voiding parameters. Will obtain PSA in 4 months. Follow-up in 4 months with lab to be completed prior; or sooner with any issues, concerns, and or questions. Orders: Orders AMB Urinalysis Automated Today Z13.9 - Encounter for screening, unspecified Prostate Specific Antigen 4 Months R97.20 - Elevated prostate specific antigen [ PSA] Patient Instructions: The patient had an opportunity to ask questions regarding the treatment plan. All questions were answered. Physical exam, labs, and imaging were discussed and reviewed in detail. As well as risks, benefits, and discussion of treatment choices. No major barriers to understanding were identified. The patient expre ssed understanding and agreement with the above treatment plan. The patient was made aware they should contact our office by phone for worsening of their current condition, the appearance of new symptoms, or with any questions or concerns. Compliance is encouraged with any medications and follow up testing that is ordered. It is a privilege to be allowed the opportunity to participate in? your urological care.? Again, if you have any questions or concerns If you have any questions or concerns please do not hesitate to contact me. The office is [phone]. This note is constructed using voice recognition software. While every effort has been made to ensure accuracy production illustrator errors may have been included. Yours sincerely, RUDOLPH Denson Coding Level of Care Code Est Pt Level 4 (59916) Diagnoses Elevated PSA R97.20 Enlarged prostate N40.0 Time Spent (min) 35
== END 2023-05-30 14:08 | disposition home or self-care (01) ==
PROVIDERS: PCP Family Medicine; Visit Provider Nurse Practitioner Family
DX: R97.20 Elevated prostate specific antigen [PSA] (principal); N40.0 Benign prostatic hyperplasia without lower urinary tract symptoms
CPT/HCPCS: 99214

== ENCOUNTER 2023-06-18 15:44 | Outpatient (AMB) | payer OTHER, SELFPAY ==
[2023-06-18 15:48] VITALS: BP 132/80; PULSE 77; O2SAT 97; BMI 31.7
--- NOTE | 2023-06-18 15:48 | MHC.PC.OV ---
Vital Signs 06/18/23 15:48 Height 5 ft 10 in Weight 221 lb BMI 31.7 BP 132/80 Blood Pressure Location Lt brachial Position Sitting Pulse 77 Pulse Source Pulse Oximeter Pulse Oximetry (%) 97 Oxygen Delivery Method Room Air Intake Visit Reasons: f/u low hdl, labs Intake Note: Patient is here for follow up on labs. Patient is concerned about rosecea? on his face. He also complains of bilateral hip pain. Allergies No Known Allergies Allergy (Verified 06/18/23 15:52) Tobacco use date assessed: 06/18/23 Dental Screening Dental Screen Date: 11/27/22 HPI f/u low hdl, labs HPI Details 58 y/o male presents to f/u labs and low HDL. Labs were drawn 05/30/23. Reviewed labs with pt. Ongoing low HDL at 33. Triglycerides 217. TC 168. LDL 92. Blood pressure today 132/80. Retroperitoneum ultrasound done 05/21/23 for elevated PSA. Showed prostatomegaly He follows up with [facility] for this. Pt has complaints of bilateral hip pain today. Pt also has complaints of rosacea - he has an appt. with dermatology for this. HPI Comments History of Present Illness Details Documentation assistance for Ethan Back MD, was provided by Pradeep Lepe, [employer] on 06/18/2023 4:01 PM [place]. Harris, Dr. Back, have read, observed, and verified documentation. [facility] Surgical History Hx of cholecystectomy Family History Maternal Grandfather Heart trouble Paternal Grandfather Substance abuse Social History Housing: House Patient Tobacco Use Status: Never used Tobacco e-Cigarette/Vaping Use: Never Used service: No Current occupational status: employed Current occupation: postal service Cognitive needs: No Hearing needs: No Vision needs: No Review of Systems Const Denies chills, Denies fatigue, Denies fever(s), Denies headache(s) and Denies weakness ENT Denies dizziness and Denies headache(s) Card Denies dyspnea Resp Denies cough, Denies dyspnea, Denies wheezing and Denies other (shortness of breath) Musc Denies numbness and Denies tingling Neuro Denies dizziness, Denies headache(s), Denies numbness, Denies tingling and Denies weakness Psych Denies anxiety and Denies depression Endo Denies fatigue Aller/Immun Denies wheezing Physical exam (Primary Care) Vital Signs: Last Vital Signs Pulse 77 06/18/23 15:48 BP 132/80 06/18/23 15:48 Pulse Ox 97 06/18/23 15:48 Oxygen Delivery Method Room Air 06/18/23 15:48 BMI result Body Mass Index 31.7 Tobacco/Smoking Status: Tobacco use Status Tobacco use date assessed 06/18/23 06/18/23 15:54 Patient Tobacco Use Status Never used Tobacco 06/18/23 15:51 e-Cigarette/Vaping Use Never Used 06/18/23 15:51 Const General: well developed; No acute distress Nutritional Appearance: well nourished Orientation/consciousness: patient oriented x3 HENMT Head: Yes normocephalic and Yes atraumatic Eyes General: appearance normal, both eyes and all related structures Pupils: Equal, round and reactive pupils present EOM: EOMs intact bilaterally Resp Effort & Inspection: normal respiratory effort Neuro General: patient oriented x3 and gait normal Cranial nerves: Yes Equal, round and reactive pupils present Psych Affect: normal affect Assessment and Plan Assessment & Plan (1) Low HDL (under 40): Code(s): E78.6 - Lipoprotein deficiency Plan: Ongoing?low?HDL Encouraged?additional?exercise?and?weight?loss (2) Enlarged prostate: Code(s): N40.0 - Benign prostatic hyperplasia without lower urinary tract symptoms Plan: Enlarged?prostate. He?is?followed?by?Urology?and?I?encouraged?him?to?follow-up (3) Elevated blood pressure reading: Code(s): R03.0 - Elevated blood-pressure reading, without diagnosis of hypertension Plan: Blood?pressure?in?prehypertensive?range?without?medications. Encouraged?weight?loss,?exercise?and?salt/sodium?avoiding (4) Bilateral hip pain: Code(s): M25.551 - Pain in right hip; M25.552 - Pain in left hip Plan: Encouraged?weight?loss Use?cushion?when?driving?truck Offered?physical?therapy?and?he?will?think?about?the (5) Rosacea: Code(s): L71.9 - Rosacea, unspecified Plan: Follow-up?with?dermatology Coding Level of Care Code Est Pt Level 4 (85719) Diagnoses Low HDL (under 40) E78.6 Enlarged prostate N40.0 Elevated blood pressure reading R03.0 Bilateral hip pain M25.551; M25.552 Rosacea L71.9
== END 2023-06-18 16:27 | disposition home or self-care (01) ==
PROVIDERS: PCP Family Medicine; Visit Provider Family Medicine
DX: E78.6 Lipoprotein deficiency (principal); N40.0 Benign prostatic hyperplasia without lower urinary tract symptoms; R03.0 Elevated blood-pressure reading, without diagnosis of hypertension; M25.551 Pain in right hip; M25.552 Pain in left hip; L71.9 Rosacea, unspecified
CPT/HCPCS: 99214

== ENCOUNTER 2024-01-25 08:00 | Outpatient (AMB) | payer OTHER, SELFPAY ==
--- NOTE | 2024-01-25 08:06 | MHC.PC.OV ---
Vital Signs 01/25/24 08:09 Height 5 ft 10 in Weight 227 lb BMI 32.6 BP 124/76 Blood Pressure Location Lt brachial Position Sitting Pulse 85 Pulse Source Auscultation Pulse Oximetry (%) 98 Oxygen Delivery Method Room Air Intake Visit Reasons: cpe Intake Note: Patient is here today for a physical. Environmental Management Specialist Required: No Anodiser: Not Required per policy Accompanied by: Self / Same As Patient Allergies No Known Allergies Allergy (Verified 01/25/24 08:10) Medication List - Last Re[facility] 01[facility]25/24 [facility] No Known Home Meds Tobacco use date assessed: 01/25/24 Dental Screening Dental Screen Date: 01/25/24 Did you have a dental visit in the last 12 months?: Yes Did you have a dental problem in the last 6 months where you did not have access to dental care?: No Was dental information given to patient?: Patient has dentist HPI HPI Comments History of Present Illness Details 58-year-old male with BPH with elevated PSA, hyperlipidemia, obesity, rosacea 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 Colon declined ? PSA managed by Uro ? Tdap 2022, declined flu Specialists: Urology Patient of Dr Back here today for CPE Overall feels well Has gained some weight Optho - uses readers. Interested in referral for exam. Has chronic bilat hip pain, has not seen Ortho. Offered referral today & declined @ this time. However would like xray to see how advanced his OA may be; may or may not get it done this year; may wait til next year to have it done d/t finances. Has some chronic intermittent back pain. Sleep is ok. Mood is good. Skin - has rosacea, saw Derm in the past; does not like to take meds. Has rashes that come and go related to dry skin. Hearing - chronic deficit. bilat, had hearing aides in the past; did not like it. Can hear crackling L ear when chewing at times. This is not present today. Plan RTO 1 year CPE with pilo Mock [facility] Surgical History Hx of cholecystectomy Family History Maternal Grandfather Heart trouble Paternal Grandfather Substance abuse Social History Housing: House Patient Tobacco Use Status: Never used Tobacco e-Cigarette/Vaping Use: Never Used service: No Current occupational status: employed Current occupation: postal service Cognitive needs: No Hearing needs: No Vision needs: No Questionnaire PHQ-9 Over the last 2 weeks, how often have you been bothered by any of the following problems? 1. Little interest or pleasure in doing things: not at all 2. Feeling down, depressed, or hopeless: not at all 3. Trouble falling or staying asleep, or sleeping too much: not at all 4. Feeling tired or having little energy: not at all 5. Poor appetite or overeating: not at all 6. Feeling bad about yourself - or that you are a failure or have let yourself or your family down: not at all 7. Trouble concentrating on things, such as reading the newspaper or watching television: not at all 8. Moving or speaking so slowly that other people could have noticed. Or the opposite - being so fidgety or restless that you have been moving around a lot more than usual: not at all 9. Thoughts that you would be better off or of hurting yourself in some way: not at all Total score: 0 Depression Screening Interpretation: Negative Depression Screening Done: Yes 05207 - PHQ-9 Billing: Yes Source: Developed by Drs. Kyle Fields, Kristen Georges, Deric Caputo and colleagues, with an educational humberto from [email or web address]. Thrive Questionnaire Date Thrive assessed: 01/25/24 I am a: Patient What is your living situation today?: I have a steady place to live Within the past 12 months, did the food you bought not last and you didn't have the money to get more?: Never true Within the past 12 months, did you worry whether your food would run out before you got money to buy more?: Never true Do you have trouble paying for medicines?: No Do you have trouble getting transportation to medical appointments?: No Do you have trouble paying your heating and electricity bill?: No Do you have trouble taking care of your child, family member or friend?: No Do you have trouble with day-to-day activities such as bathing, preparing meals, shopping, managing finances, etc.?: No Are you currently unemployed and looking for a job?: No Are you interested in more education?: No Please select the resources that you would like help with: None Currently or been in a relationship where the following occur: No concerns reported THRIVE Score: 0 AUDIT C Alcohol Use Questionnaire (AUDIT-C) 1. How often do you have a drink containing alcohol?: Never 3. How often do you have six or more drinks on one occasion?: Never Total Score: 0 Score Reviewed/Action Taken: Yes ULI-7 AMB Questionnaire ULI-7 Date ULI - 7 assessed: 01/25/24 Feeling nervous, anxious, or on edge: 0 = Not at all Not being able to stop or control worryin = Not at all Worrying too much about different things: 0 = Not at all Trouble relaxin = Not at all Being so restless that it is hard to sit still: 0 = Not at all Becoming easily annoyed or irritable: 0 = Not at all Feeling afraid as if something awful might happen: 0 = Not at all Total ULI-7 score (0-4 normal; 5-9 mild; 10-14 moderate; 15-21 severe): 0 Source: Developed by Drs. Kyle Fields, Kristen Georges, Deric Caputo and colleagues, with an educational humberto from [email or web address]. ULI-7 Assessment Billing ULI-7 Assessment Tool: ULI-7 Assessment 72246 Review of Systems Const Details: Constitutional: Denies fever. Skin: Denies rash. Eye: Denies eye pain. ENMT: Denies sore throat and nasal congestion. Respiratory: Denies shortness of breath and cough. Gastrointestinal: Denies nausea, vomiting or abdominal pain. Cardiovascular: Denies chest pain and syncope. Genitourinary: Denies dysuria. Musculoskeletal: Denies back pain and extremity pain. Neurologic: Denies headaches, confusion, and weakness. Psychiatric: Denies suicidal thoughts and substance abuse. Allergy/ Immunologic: Denies impaired immunity. Physical exam (Primary Care) BMI Assessment/Plan discussion: High BMI High, discussed plan: lifestyle Tobacco/Smoking Status: Tobacco use Status Tobacco use date assessed 06/18/23 01/25/24 08:07 Patient Tobacco Use Status Never used Tobacco 01/25/24 08:07 e-Cigarette/Vaping Use Never Used 01/25/24 08:07 Depression Screening Interpretation: Negative Currently or been in a relationship where the following occur: No concerns reported Const Other: General: Well developed, well nourished, in no acute distress. Appears stated age. FACIAL ROSACEA Head: Normocephalic, atraumatic. Eyes: Pupils are equal, round and reactive to light and accommodation. Conjunctivae are clear. Vision grossly normal. Ears: TMs clear AU, EACS WNL MILD INJECTION OF LEFT TM Nose: Patent, without discharge. Mouth: There are no ulcers or lesions noted. No inflammation, no post nasal drip, no plaques nor exudates. Neck: Supple, no adenopathy or thyromegaly. Lungs: Clear to auscultation bilaterally. No rales, rhonchi or wheeze noted. Good air flow in all lucas. Heart: Regular rate and rhythm. No murmurs, click, rubs or gallops are noted. Abdomen: Bowel sounds present in all quadrants. The abdomen is soft, nontender, with no masses or organomegaly noted. No hernias are noted. Musculoskeletal: Joints are nontender, without swelling, redness, or effusions. Range of motion is observed to be normal. Pulses: Peripheral pulses are equal and palpable bilaterally. Extremities: No clubbing, cyanosis nor edema is noted. Neurologic: Gait and station normal. Cranial Nerves 2-12 intact. Motor strength grossly symmetrical and intact. No sensory loss. Balance normal. Skin: No rashes, ulcers, or lesions noted. Turgor is good. Skin color is good. Hair and nails are without abnormalities MULTIPLE MOLES AND SKIN LESION ON TRUNK . Psych: Normal eye contact, affect and mood appropriate, and normal interactions. Patient is alert and appropriate to context. Coding Level of Care Code Est Pt Prev Care 40-64y(75451) Diagnoses Encounter for general adult medical examination without abnormal findings Z00.00 Laboratory exam ordered as part of routine general medical examination Z00.00 BMI 32.0-32.9,adult Z68.32 Class 1 obesity due to excess calories with serious comorbidity and body mass index (BMI) of 32.0 to 32.9 in adult E66.811; E66.09; Z68.32 Obesity type: due to excess calories Blurred vision, bilateral H53.8 Bilateral hip pain M25.551; M25.552 BPH with elevated PSA N40.0; R97.20 Rosacea L71.9 MENOMINEE (hard of hearing) H91.90 Additional Codes ULI-7 Assessment Billing - ULI-7 Assessment Tool: ULI-7 Assessment 91949 ([id number]) PHQ-9 - 34394 - PHQ-9 Billing: Yes ([id number]) Assessment & Plan Assessment & Plan (1) Encounter for general adult medical examination without abnormal findings: Code(s): Z00.00 - Encounter for general adult medical examination without abnormal findings Plan: . (2) Laboratory exam ordered as part of routine general medical examination: Code(s): Z00.00 - Encounter for general adult medical examination without abnormal findings Category: Medical Plan: . (3) BMI 32.0-32.9,adult: Code(s): Z68.32 - Body mass index [BMI] 32.0-32.9, adult Category: Medical Plan: . (4) Class 1 obesity with serious comorbidity and body mass index (BMI) of 32.0 to 32.9 in adult: Comment: WITH HLD Code(s): E66.811 - Obesity, class 1; Z68.32 - Body mass index [BMI] 32.0-32.9, adult Category: Medical Qualifiers: Obesity type: due to excess calories Qualified Code(s): E66.811 - Obesity, class 1; E66.09 - Other obesity due to excess calories; Z68.32 - Body mass index [BMI] 32.0-32.9, adult Plan: . (5) Blurred vision, bilateral: Code(s): H53.8 - Other visual disturbances Category: Medical Plan: . (6) Bilateral hip pain: Code(s): M25.551 - Pain in right hip; M25.552 - Pain in left hip Category: Medical Plan: . (7) BPH with elevated PSA: Code(s): N40.0 - Benign prostatic hyperplasia without lower urinary tract symptoms; R97.20 - Elevated prostate specific antigen [PSA] Category: Medical Plan: . (8) Rosacea: Code(s): L71.9 - Rosacea, unspecified Category: Medical Plan: . (9) MENOMINEE (hard of hearing): Code(s): H91.90 - Unspecified hearing loss, unspecified ear Category: Medical Plan: . Plan . Orders: Orders Lipid Panel Today Z00.00 - Encounter for general adult medical examination without abnormal findings Microalbumin, Random (w Creat) Today Z00.00 - Encounter for general adult medical examination without abnormal findings PSA, Ultra Sensitive Today N40.0 - Benign prostatic hyperplasia without lower urinary tract symptoms, R97.20 - Elevated prostate specific antigen [PSA] Comprehensive Met. Panel Today Z00.00 - Encounter for general adult medical examination without abnormal findings Hemoglobin A1c Today Z00.00 - Encounter for general adult medical examination without abnormal findings TSH reflex Free T4 Today Z00.00 - Encounter for general adult medical examination without abnormal findings XR hip BI w PEL1V Today M25.551 - Pain in right hip, M25.552 - Pain in left hip Referrals Ophthalmology Referral H53.8 - Other visual disturbances Patient Instructions: Health screenings for men ages 40 to 64 You should visit your health care provider regularly, even if you feel healthy. The purpose of these visits is to: Screen for medical issues Assess your risk for future medical problems Encourage a healthy lifestyle Update vaccinations and other preventive care services Help you get to know your provider in case of an illness Information Even if you feel fine, you should still see your provider for regular checkups. These visits can help you avoid problems in the future. For example, the only way to find out if you have high blood pressure is to have it checked regularly. High blood sugar and high cholesterol level also may not have any symptoms in the early stages. Simple blood tests can check for these conditions. There are specific times when you should see your provider or receive specific health screenings. The [place] Preventive Services Task Force publishes a list of recommended screenings. Below are screening guidelines for men ages 40 to 64. BLOOD PRESSURE SCREENING Have your blood pressure checked at least once every year. Watch for blood pressure screenings in your area. Ask your provider if you can stop in to have your blood pressure checked. Ask your provider if you need your blood pressure checked more often if: You have diabetes, heart disease, kidney problems, or are overweight or have certain other health conditions You have a first-degree relative with high blood pressure You are Black Your blood pressure top number is from 120 to 129 mm Hg, or the bottom number is from 70 to 79 mm Hg If the top number is 130 mm Hg or greater or the bottom number is 80 mm Hg or greater, this is considered stage 1 hypertension. Schedule an appointment with your provider to learn how you can lower your blood pressure. Effects of age on blood pressure CHOLESTEROL SCREENING Cholesterol screening should begin at age 35 for men with no known risk factors for coronary heart disease. Repeat cholesterol screening should take place: Every 5 years for men with normal cholesterol levels More often if changes occur in lifestyle (including weight gain and diet) More often if you have diabetes, heart disease, kidney problems, or certain other conditions COLORECTAL CANCER SCREENING If you are under age 45, talk to your provider about getting screened. You may need to be screened if you have a strong family history of colon cancer or polyps. Screening may also be considered if you have risk factors such as a history of inflammatory bowel disease or polyps. If you are age 45 to 75, you should be screened for colorectal cancer. There are several screening tests available: A stool-based fecal occult blood (gFOBT) or fecal immunochemical test (FIT) every year A stool sDNA test every 1 to 3 years Flexible sigmoidoscopy every 5 years or every 10 years with stool testing FIT done every year CT colonography (virtual colonoscopy) every 5 years Colonoscopy every 10 years You may need a colonoscopy more often if you have risk factors for colorectal cancer, such as: Ulcerative colitis A personal or family history of colorectal cancer A history of growths in your colon called adenomatous polyps DENTAL EXAM Go to the dentist once or twice every year for an exam and cleaning. Your dentist will evaluate if you have a need for more frequent visits. DIABETES SCREENING All adults who do not have risk factors for diabetes should be screened starting at age 35 and repeated every 3 years. If you have other risk factors for diabetes, such as a first degree relative with diabetes, overweight or obesity, high blood pressure, prediabetes, or a history of heart disease, you may be tested more often. If you are overweight and have other risk factors, such as high blood pressure and are planning to become , screening is recommended. EYE EXAM Have an eye exam every 2 to 4 years ages 40 to 54 and every 1 to 3 years ages 55 to 64. Your provider may recommend more frequent eye exams if you have vision problems or glaucoma risk. Have an eye exam that includes an examination of your retina (back of your eye) at least every year if you have diabetes. IMMUNIZATIONS Commonly needed vaccines include: Flu shot: get one every year COVID-19 vaccine: ask your provider what is best for you Tetanus-diphtheria and acellular pertussis (Tdap) vaccine: have as one of your tetanus-diphtheria vaccines if you did not receive it as an adolescent Tetanus-diphtheria: have a booster (or Tdap) every 10 years Varicella vaccine: receive 2 doses if you never had chickenpox or the varicella vaccine and were born in 1980 or after Hepatitis B vaccine: receive 2, 3, or 4 doses, depending on your exact circumstances, if you did not receive these as a child or adolescent, until age 59 Shingles (herpes zoster) vaccine: at or after age 50 Ask your provider if you should receive other immunizations, especially if you have certain medical conditions, such as diabetes or are at increased risk for some diseases such as pneumonia. INFECTIOUS DISEASE SCREENING Screening for hepatitis C: all adults ages 18 to 79 should get a one-time test for hepatitis C. Screening for human immunodeficiency virus (HIV): all people ages 15 to 65 should get a one-time test for HIV. Depending on your lifestyle and medical history, you may need to be screened for infections such as syphilis, chlamydia, and other infections. LUNG CANCER SCREENING You should have an annual screening for lung cancer with low-dose computed tomography (LDCT) if: You are age 50 to 80 years AND You have a 20 pack-year smoking history AND You currently smoke or have quit within the past 15 years OSTEOPOROSIS SCREENING If you are age 50 to 64 and have risk factors for osteoporosis, you should discuss screening with your provider. Risk factors can include long-term steroid use, low body weight, smoking, heavy alcohol use, having a fracture after age 50, or a family history of hip fracture or osteoporosis. Osteoporosis PHYSICAL EXAM All adults should visit their provider from time to time, even if they are healthy. The purpose of these visits is to: Screen for diseases Assess risk of future medical problems Encourage a healthy lifestyle Update vaccinations and other preventive care services Maintain a relationship with a provider in case of an illness Your height, weight, and body mass index (BMI) should be checked at every exam. During your exam, your provider may ask you about: Depression and anxiety Diet and exercise Alcohol and tobacco use Safety, such as use of seat belts and smoke detectors Your medicines and risk for interactions PROSTATE CANCER SCREENING If you're 55 through 69 years old, before having the test, talk to your provider about the pros and cons of having a PSA test. Ask about: Whether screening decreases your chance of dying from prostate cancer. Whether there is any harm from prostate cancer screening, such as side effects from testing or overtreatment of cancer when discovered. Whether you have a higher risk of prostate cancer than others. If you are age 55 or younger, screening is not generally recommended. You should talk with your provider about if you have a higher risk for prostate cancer. Risk factors include: Having a family history of prostate cancer (especially a brother or father) Being If you choose to be tested, the PSA blood test is repeated over time (yearly or less often), though the best frequency is not known. Prostate examinations are no longer routinely done on men with no symptoms. Prostate cancer SKIN EXAM Your provider may check your skin for signs of skin cancer, especially if you're at high risk. People at high risk include those who have had skin cancer before, have close relatives with skin cancer, or have a weakened immune system. TESTICULAR EXAM The [place] Preventive Services Task Force (USPSTF) now recommends against performing testicular self-exams. Doing testicular self-exams has been shown to have little to no benefit.
[2024-01-25 08:09] VITALS: BP 124/76; PULSE 85; O2SAT 98; BMI 32.6
== END 2024-01-25 08:35 | disposition home or self-care (01) ==
PROVIDERS: PCP Family Medicine; Visit Provider Nurse Practitioner Family
DX: Z00.00 Encounter for general adult medical examination without abnormal findings (principal); Z68.32 Body mass index [BMI] 32.0-32.9, adult; E66.811 Obesity, class 1; E66.09 Other obesity due to excess calories; H53.8 Other visual disturbances; M25.551 Pain in right hip; M25.552 Pain in left hip; N40.0 Benign prostatic hyperplasia without lower urinary tract symptoms; R97.20 Elevated prostate specific antigen [PSA]; L71.9 Rosacea, unspecified; H91.90 Unspecified hearing loss, unspecified ear

== ENCOUNTER → 2024-01-25 08:00 | Outpatient (BNVA) | payer OTHER, SELFPAY | PROVIDERS: PCP Family Medicine; Visit Provider Nurse Practitioner Family | DX: Z00.00 Encounter for general adult medical examination without abnormal findings (principal); E66.811 Obesity, class 1; E66.09 Other obesity due to excess calories; Z68.32 Body mass index [BMI] 32.0-32.9, adult; H53.8 Other visual disturbances; M25.551 Pain in right hip; M25.552 Pain in left hip; N40.0 Benign prostatic hyperplasia without lower urinary tract symptoms; R97.20 Elevated prostate specific antigen [PSA]; L71.9 Rosacea, unspecified; H91.90 Unspecified hearing loss, unspecified ear | CPT/HCPCS: 96127 ==

== ENCOUNTER 2024-01-25 08:43 | Outpatient (REF) | payer OTHER, SELFPAY ==
[2024-01-25 11:40] LABS: Alanine Aminotransferase 74 U/L (0-40); Albumin Level 4.2 g/dL (3.5-5.0); Alkaline Phosphatase 57 U/L (39-117); Anion Gap 11 (12-20); Aspartate Amino Transferase 38 U/L (5-37); Bilirubin Total 0.7 mg/dL (0.0-1.0); Blood Urea Nitrogen 14 mg/dL (9-16); Calcium 9.7 mg/dL (8.4-10.2); Carbon Dioxide 26 mmol/L (22-29); Chloride 106 mmol/L (96-108); Cholesterol 153 mg/dL (<200); Estimated Glomerular Filt Rate > 60; Glucose Random 129 mg/dL (60-115); HDL Cholesterol 30 mg/dL (>40); LDL Cholesterol Calculated 72 mg/dL (<100); Potassium 3.7 mmol/L (3.3-5.1); Sodium 139 mmol/L (135-145); Triglycerides 258 mg/dL (<150)
[2024-01-25 11:45] LABS: TSH reflex Free T4 5.03 uIU/mL (0.32-4.0)
[2024-01-25 11:47] LABS: Prostate Specific Antigen 2.63 ng/mL (<0.05-4.0)
[2024-01-25 11:59] LABS: Estimated Average Glucose 105 mg/dL; Hemoglobin A1C 187.0743 umol/L; Hemoglobin A1c % 5.3 % (<6.0)
[2024-01-25 12:20] LABS: Free T4 (Free Thyroxine) 1.01 ng/dL (0.71-1.85)
[2024-01-25 18:20] LABS: Creatinine Urine 223.02 mg/dL; Microalbum/Creatinine Ratio Ur 6.2 ug/mg cr (<30)
[2024-01-31 07:53] LABS: PSA, Ultra Sensitive 2.56 ng/mL
== END 2024-01-25 08:44 | disposition home or self-care (01) ==
LOC: HO.WFDLDS 08:43
PROVIDERS: Referring Provider Nurse Practitioner Family; Visit Provider Nurse Practitioner Family
DX: Z00.00 Encounter for general adult medical examination without abnormal findings (principal); N40.0 Benign prostatic hyperplasia without lower urinary tract symptoms; R97.20 Elevated prostate specific antigen [PSA]; Z12.5 Encounter for screening for malignant neoplasm of prostate; Z13.1 Encounter for screening for diabetes mellitus; E78.5 Hyperlipidemia, unspecified; E66.09 Other obesity due to excess calories
CPT/HCPCS: 36415; 80053; 80061; 82043; 82570; 83036; 84153; 84439; 84443

== ENCOUNTER 2024-08-01 11:47 | Outpatient (REF) | payer OTHER, SELFPAY ==
--- OUTSIDE RECORDS SUMMARY | 2024-08-01 11:50 | XMS_ITS | Clinical Summary ---
Author Organization [facility] Address [address] [place] [address] Care Team Providers Care Automatic Pinsetter Mechanic Name Role Phone Kera Napier MD Primary Care Provider [phone] Surgical History Surgery Date Site/Laterality Comments TONSILLECTOMY PROCEDURE: HISTORICAL TONSILLECTOMY OTHER SURGICAL HISTORY PROCEDURE: [place] UNLISTED PX SKIN MUC MEMBRANE & SUBQ TISSUE; COMMENT: cyst removal nasal bridge as a child HERNIA REPAIR as a child PROCEDURE: REPAIR INGUINAL HERNIA CHOLECYSTECTOMY 09/26/2018 PROCEDURE: HISTORICAL CHOLECYSTECTOMY; COMMENT: per deann report Medical History Medical History Date Comments Overweight(278.02) 01/01/2007 DX:Overweight (278.02) Inguinal hernia without ment ion of obstruction or gangrene, unilateral or unspecified, (not specified as recurrent) 03/25/2007 DX:Inguinal hernia without m ention of obstruction or gangrene, unilateral or unspecified, (not specified as recurrent) Unspecified essential hypertension DX:Unspecified essential hypertension Family History Medical History Relation Name Comments Crohn's disease Brother 1 No Known Problems Brother 2 No Known Problems Brother 3 Other: scoliosis Daughter Coronary artery disease Father [place] 6 0s or 70s, dementia, skin cancer Coronary artery disease Maternal Grandfather Other: skin cancer Mother No Known Problems Son Blindness Neg Hx Cataracts Neg Hx Glaucoma Neg Hx Macular degeneration Neg Hx Strabismus Neg Hx Relation Name Status Comments Brother 1 Alive Healthy Brother 2 Alive COLITIS Brother 3 Alive Healthy Daughter Alive Healthy Father Alive SKIN CA, HUANG RY STENTS X 2 Maternal Grandfather CARDIAC Maternal Grandmother UK Mother Alive SKIN CA; utis Paternal Grandfather PNEUMON [place] ? Paternal Grandmother UK Son Alive Healthy Social History Tobacco Use Types Packs/Day Years Used Date Smoking Tobacco: Never Smokeless Tobacco: Never Alcohol Use Standard Drinks/Week Comments No 0 (1 standard drink = 0.6 oz pur e alcohol) Sex and Gender Information Value Date Recorded Sex Assigned at Not on file Legal Sex Male 2:47 PM EST Gender Identity Not on file Sexual Orientation Not on file Obstetrics History Last Filed Vital Signs Vital Sign Reading Time Taken Comments Blood Pressure 140/90 06/10/2021 12:03 PM EDT Pulse 64 06/10/2021 12:03 PM EDT Temperature - - Respiratory Rate - - Oxygen Saturation - - Inhaled Oxygen Concentration - - Weight 94.3 kg (208 lb) 06/10/2021 12:03 PM EDT Height 177.8 cm (5' 10 ) 06/10/2021 12:03 PM EDT Body Mass Index 29.84 06/10/2021 12:03 PM EDT Plan of Treatment Health Maintenance Due Date Last Done Comments Hepatitis B Vaccines (1 of 3 - 19+ 3-dose series) 1984 Pneumococcal Vaccine: 50+ Ye ars (1 of 1 - PCV) 2015 Zoster Vaccines (1 of 2) 2015 DTaP,Tdap,and Td Vaccines (2 - Td or Tdap) 01/28/2022 01/29/2012 Cholesterol Screening (Lipid Panel) 02/08/2022 Colorectal Cancer Screening: Colonoscopy 02/08/2022 Depression Screening 02/08/2022 HIV Screening 02/08/2022 Hepatitis C Screening 02/08/2022 Social Influencers of Health Screening 02/08/2022 Hypertension/CHF/CAD Annual BMP Blood Test 02/19/2022 COVID-19 Vaccine (2023-2 5 season) 2023 Influenza Vaccine (Season Ended) 2024 RSV Immunization Adult Patie nts (1 - 1-dose 75+ series) 2040 HIB Vaccines Aged Out No longer eligi ble based on patient's age to complete this topic HPV Vaccines Aged Out No longer eligi ble based on patient's age to complete this topic Hepatitis A Vaccines Aged Out No long er eligible based on patient's age to complete this topic IPV Vaccines Aged Out No longer eligi ble based on patient's age to complete this topic MMR Vaccines Aged Out No longer eligi ble based on patient's age to complete this topic Meningococcal ACWY Vaccine Aged Out N o longer eligible based on patient's age to complete this topic Meningococcal B Vaccine Aged Out No l onger eligible based on patient's age to complete this topic Pneumococcal Vaccine: Pediat rics (0 to 5 Years) and At-Risk Patients (6 to 64 Years) Aged Out No longer eligi ble based on patient's age to complete this topic RSV Immunization Patients Un piter 20 months Aged Out No longer eligible b ased on patient's age to complete this topic Varicella Vaccines Aged Out No longer eligible based on patient's age to complete this topic Care Teams Automatic Pinsetter Mechanic Relationship Specialty Start Date End Date Kera Napier MD [address] [place] [id number] PCP - General Internal Medicine 08/04/20
[2024-08-01 14:52] LABS: Alanine Aminotransferase 46 U/L (0-40); Albumin Level 4.8 g/dL (3.5-5.0); Alkaline Phosphatase 62 U/L (39-117); Anion Gap 9 (12-20); Aspartate Amino Transferase 33 U/L (5-37); Bilirubin Total 1.1 mg/dL (0.0-1.0); Blood Urea Nitrogen 16 mg/dL (9-16); Calcium 9.5 mg/dL (8.4-10.2); Carbon Dioxide 28 mmol/L (22-29); Chloride 104 mmol/L (96-108); Estimated Glomerular Filt Rate > 60; Glucose Random 98 mg/dL (60-115); Potassium 4.1 mmol/L (3.3-5.1); Sodium 137 mmol/L (135-145); Total Protein 7.5 g/dL (6.5-8.0)
[2024-08-01 15:11] LABS: Free T4 (Free Thyroxine) 1.11 ng/dL (0.71-1.85); Thyroid Stimulating Hormone 4.91 uIU/mL (0.32-4.0)
[2024-08-02 06:43] LABS: Triiodothyronine T3 Total 180 ng/dL (76-181)
== END 2024-08-01 11:48 | disposition home or self-care (01) ==
LOC: HO.WFDLDS 11:47
PROVIDERS: Visit Provider Family Medicine
DX: R74.8 Abnormal levels of other serum enzymes (principal); R79.89 Other specified abnormal findings of blood chemistry; E03.9 Hypothyroidism, unspecified
CPT/HCPCS: 36415; 80053; 84439; 84443; 84480

== ENCOUNTER 2024-08-05 14:41 | Outpatient (AMB) | payer OTHER, SELFPAY ==
--- OUTSIDE RECORDS SUMMARY | 2024-08-05 14:43 | XMS_ITS | Clinical Summary ---
Author Organization [facility] Address [address] [place] [address] Care Team Providers Care Cinema Or Theatre Manager Name Role Phone Kera Napier MD Primary Care Provider [phone] Surgical History Surgery Date Site/Laterality Comments TONSILLECTOMY PROCEDURE: HISTORICAL TONSILLECTOMY OTHER SURGICAL HISTORY PROCEDURE: [place] UNLISTED PX SKIN MUC MEMBRANE & SUBQ [...] Other: scoliosis Daughter Coronary artery disease Father [place] 6 0s or 70s, dementia, skin cancer [...] age to complete this topic Care Teams Cinema Or Theatre Manager Relationship Specialty Start Date End Date Kera Napier MD [address] [place] [id number] PCP - General Internal Medicine 08/04/20
--- NOTE | 2024-08-05 14:56 | A.OFFPC_ITS ---
Vital Signs 08/05/24 15:02 Height 5 ft 10 in Weight 225 lb 2 oz BMI 32.3 BP 122/64 Blood Pressure Location Lt brachial Position Sitting Respiration 14 Pulse 71 Pulse Source Pulse Oximeter Temp 97.7 F Temp Source Oral Pulse Oximetry (%) 97 Oxygen Delivery Method Room Air Intake Visit Reasons: BP check /labs results /ear concerns Allergies No Known Allergies Allergy (Verified 08/05/24 14:58) Medication List - Last Reconciled 08/05/24 by Ethan Back MD No Known Home Meds Tobacco use date assessed: 08/05/24 Dental Screening Dental Screen Date: 08/05/24 Did you have a dental visit in the last 12 months?: Yes Did you have a dental problem in the last 6 months where you did not have access to dental care?: No Was dental information given to patient?: No HPI BP check /labs results /ear concerns HPI Details 59 y/o male presents to f/u on blood pre ssure. Had not been taking any meds. BP had been in prehypertensive range. Advised lifestyle changes. Blood pressure today 122/64. Labs drawn 08/01/24. Reviewed labs with pt. AST 33. Elevated ALT of 46. TSH 4.91. Free T4 1.11. Toal T3 180. Has some complaints of fatigue. Pt reports some ear discomfort/tinnitus. Reports some calf pain. PFSH Surgical History Hx of cholecystectomy Family History Maternal Grandfather Heart trouble Paternal Grandfather Substance abuse Social History Housing: House Patient Tobacco Use Status: Never used Tobacco e-Cigarette/Vaping Use: Never Used service: No Current occupational status: employed Current occupation: postal service Current occupational exposures/hazards: No Cognitive needs: No Hearing needs: No Vision needs: No Questionnaire Thrive Questionnaire Date Thrive assessed: 08/05/24 What is your living situation today?: I have a steady place to live THRIVE Score: 0 ULI-7 AMB Questionnaire ULI-7 Date ULI - 7 assessed: 08/05/24 Source: Developed by Drs. Kyle LKristen Gleason, Deric Caputo and colleagues, with an educational humberto from [employer]. Review of Systems Const Denies chills, Denies fatigue, Denies fever(s), Denies headache(s) and Denies weakness ENT Denies dizziness and Denies headache(s) Card Denies dyspnea Resp Denies cough, Denies dyspnea, Denies wheezing and Denies other (shortness of breath) Musc Denies numbness and Denies tingling Neuro Denies dizziness, Denies headache(s), Denies numbness, Denies tingling and Denies weakness Psych Denies anxiety and Denies depression Endo Denies fatigue Aller/Immun Denies wheezing Physical exam (Primary Care) Vital Signs: Last Vital Signs Temp 97.7 F 08/05/24 15:02 Pulse 71 08/05/24 15:02 Resp 14 08/05/24 15:02 BP 122/64 08/05/24 15:02 Pulse Ox 97 08/05/24 15:02 Oxygen Delivery Method Room Air 08/05/24 15:02 BMI result Body Mass Index 32.3 Tobacco/Smoking Status: Tobacco use Status Tobacco use date assessed 08/05/24 08/05/24 15:01 Patient Tobacco Use Status Never used Tobacco 08/05/24 14:58 e-Cigarette/Vaping Use Never Used 08/05/24 14:58 Thrive Assessment: Date of Thrive Assessment Date Thrive assessed 08/05/24 08/05/24 15:01 Const General: well developed; No acute distress Nutritional Appearance: well nourished Orientation/consciousness: patient oriented x3 [facility] Head: Yes normocephalic and Yes atraumatic Eyes General: appearance normal, both eyes and all related structures Pupils: Equal, round and reactive pupils present EOM: EOMs intact bilaterally Resp Effort & Inspection: normal respiratory effort Neuro General: patient oriented x3 and gait normal Cranial nerves: Yes Equal, round and reactive pupils present Psych Affect: normal affect Coding Level of Care Code Est Pt Level 4 (38886) Diagnoses Elevated liver enzymes R74.8 Elevated blood pressure reading R03.0 Fatigue R53.83 Ear discomfort H92.09 Calf pain M79.669 Elevated TSH R79.89 Assessment & Plan Assessment & Plan (1) Elevated liver enzymes: Code(s): R74.8 - Abnormal levels of other serum enzymes Category: Medical Plan: Mildly?elevated?liver?enzymes.??Improved. Continue?good?hydration?and?work?on?weight?loss Will?continue?to?monitor (2) Elevated blood pressure reading: Code(s): R03.0 - Elevated blood-pressure reading, without diagnosis of hypertension Category: Medical Plan: Blood?pressure?is?fairly?well?controlled?on?no?medication. 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 Avoid?excess?salt/sodium Elevate?legs?when?can Can?try?diabetic/OTC?compression?stockings.??If?helping?but?needs?further?assist ance,?could?give?him?prescription?compression?stockings. (6) Elevated TSH: Code(s): R79.89 - Other specified abnormal findings of blood chemistry Category: Medical Plan: Mildly?elevated?TSH?but?T4?and?T3?are?within?normal?range Likely?not?related?to?his?fatigue?and?this?is?improving Will?continue?monitor Orders: Orders Comprehensive [place]. Panel Fast Today R74.8 - Abnormal levels of other serum enzymes, Z00.00 - Encounter for general adult medical examination without abnormal findings Thyroid Stimulating Hormone Today E03.9 - Hypothyroidism, unspecified, R79.89 - Other specified abnormal findings of blood chemistry Lipid Panel Today E78.6 - Lipoprotein deficiency, Z00.00 - Encounter for general adult medical examination without abnormal findings Free T4 (Free Thyroxine) Today E03.9 - Hypothyroidism, unspecified, R79.89 - Other specified abnormal findings of blood chemistry Triiodothyronine T3 Total Today E03.9 - Hypothyroidism, unspecified, R79.89 - Other specified abnormal findings of blood chemistry
[2024-08-05 15:02] VITALS: BP 122/64; PULSE 71; RESP 14; TEMP 36.5; O2SAT 97; BMI 32.3
== END 2024-08-05 15:49 | disposition home or self-care (01) ==
LOC: HO.HMCFM 14:41
PROVIDERS: PCP Family Medicine; Visit Provider Family Medicine
DX: R74.8 Abnormal levels of other serum enzymes (principal); R03.0 Elevated blood-pressure reading, without diagnosis of hypertension; R53.83 Other fatigue; H92.09 Otalgia, unspecified ear; M79.669 Pain in unspecified lower leg; R79.89 Other specified abnormal findings of blood chemistry

== ENCOUNTER → 2024-08-05 14:41 | Outpatient (BNVA) | payer OTHER, SELFPAY | PROVIDERS: PCP Family Medicine; Visit Provider Family Medicine ==

== ENCOUNTER 2024-11-14 10:53 | Outpatient (REF) | payer OTHER, SELFPAY ==
--- OUTSIDE RECORDS SUMMARY | 2024-11-14 11:58 | XMS_ITS | Clinical Summary ---
Author Organization [facility] Address [address] [place] [address] Care Team Providers Care Grades 1 Thru 5 Teacher Name Role Phone Kera Napier MD Primary Care Provider [phone] Surgical History Surgery Date Site/Laterality Comments TONSILLECTOMY PROCEDURE: HISTORICAL TONSILLECTOMY OTHER SURGICAL HISTORY PROCEDURE: [place] UNLISTED PX SKIN MUC MEMBRANE & SUBQ [...] Other: scoliosis Daughter Coronary artery disease Father [place] 6 0s or 70s, dementia, skin cancer [...] Panel) 02/08/2022 Colorectal Cancer Screening: Colonoscopy 02/08/2022 HIV Screening 02/08/2022 Hepatitis C Screening 02/08/2022 Social Influencers of Health Screening 02/08/2022 Hypertension/CHF/CAD Annual BMP Blood Test 02/19/2022 Depression Screening 03/12/2024 COVID-19 Vaccine ( - 2023-2 5 season) 2024 Influenza Vaccine (#1) 2024 RSV Immunization Adult Patie nts (1 [...] age to complete this topic Care Teams Grades 1 Thru 5 Teacher Relationship Specialty Start Date End Date Kera Napier MD [address] [place] [id number] PCP - General Internal Medicine 08/04/20
[2024-11-14 15:03] LABS: Alanine Aminotransferase 40 U/L (0-40); Albumin Level 4.5 g/dL (3.5-5.0); Alkaline Phosphatase 58 U/L (39-117); Anion Gap 10 (12-20); Aspartate Amino Transferase 35 U/L (5-37); Blood Urea Nitrogen 10 mg/dL (9-16); Calcium 9.1 mg/dL (8.4-10.2); Carbon Dioxide 26 mmol/L (22-29); Chloride 106 mmol/L (96-108); Cholesterol 148 mg/dL (<200); Estimated Glomerular Filt Rate > 60; HDL Cholesterol 30 mg/dL (>40); Potassium 4.2 mmol/L (3.3-5.1); Sodium 138 mmol/L (135-145); Total Protein 7.1 g/dL (6.5-8.0); Triglycerides 148 mg/dL (<150)
[2024-11-14 15:07] LABS: Free T4 (Free Thyroxine) 0.98 ng/dL (0.71-1.85); Thyroid Stimulating Hormone 3.77 uIU/mL (0.32-4.0)
== END 2024-11-14 10:54 | disposition home or self-care (01) ==
LOC: HO.WFDLDS 10:53
PROVIDERS: Visit Provider Family Medicine
DX: Z00.00 Encounter for general adult medical examination without abnormal findings (principal); E78.6 Lipoprotein deficiency; R74.8 Abnormal levels of other serum enzymes; R79.89 Other specified abnormal findings of blood chemistry; E03.9 Hypothyroidism, unspecified
CPT/HCPCS: 36415; 80053; 80061; 84439; 84443; 84480

== ENCOUNTER 2024-12-10 12:11 | Outpatient (REF) | payer OTHER, SELFPAY ==
[2024-12-10 18:08] LABS: MANUAL DIFF FLAG NO
[2024-12-10 18:19] LABS: Appearance Urine Clear; Glucose Urine UA Negative (Negative); PH 7.5 (5.0-9.0); Specific Gravity - Urine 1.015 (1.005-1.025)
[2024-12-10 18:21] LABS: Hematocrit 44.3 % (42.0-52.0); Hemoglobin 15.0 g/dl (14.0-18.0); Imm Gran Abs Auto 0.02 X10*3/uL (0.00-0.03); Imm Gran Pct Auto 0.3 % (0.0-0.4); Lymphocytes Absolute Auto 1.9 X10*3/uL (1.2-4.9); Mean Corpuscular HGB Conc 33.9 g/dl (31.0-36.0); Mean Corpuscular Hemoglobin 28.2 pg (27.0-33.0); Mean Corpuscular Volume 83.4 fL (80.0-98.0); NRBC Abs Auto 0.000 X10*3/uL (0.0-0.012); NRBC Pct Auto 0.0 /100WBC (0.0-0.2); Platelet Count 203 X10*3/uL (160-400); Red Blood Count 5.31 X10*6/uL (4.60-5.80); White Blood Count 6.2 X10*3/uL (4.8-10.8)
[2024-12-10 18:29] LABS: Alanine Aminotransferase 43 U/L (0-40); Albumin Level 4.4 g/dL (3.5-5.0); Alkaline Phosphatase 59 U/L (39-117); Anion Gap 10 (12-20); Aspartate Amino Transferase 28 U/L (5-37); Blood Urea Nitrogen 10 mg/dL (9-16); Calcium 9.2 mg/dL (8.4-10.2); Carbon Dioxide 27 mmol/L (22-29); Chloride 107 mmol/L (96-108); Cholesterol 150 mg/dL (<200); Estimated Glomerular Filt Rate > 60; HDL Cholesterol 29 mg/dL (>40); Potassium 4.5 mmol/L (3.3-5.1); Sodium 139 mmol/L (135-145); Total Protein 7.1 g/dL (6.5-8.0); Triglycerides 186 mg/dL (<150)
[2024-12-10 18:54] LABS: Folate 7.3 ng/mL (> or = 4.0); Vitamin B12 649 pg/mL (200-900)
[2024-12-10 19:37] LABS: Erythrocyte Sedimentation Rate 8 MM/HR (0-15)
[2024-12-10 19:42] LABS: Microalbum/Creatinine Ratio Ur 4.5 ug/mg cr (<30)
[2024-12-18 22:04] LABS: ANA Pattern 3 Nuclear, Homogeneous; ANA Titer 3 1:40 titer; Anti Nuclear Antibody Screen POSITIVE (NEGATIVE); Anti Nuclear Antibody Titer 1:80 titer
== END 2024-12-10 12:12 | disposition home or self-care (01) ==
LOC: HO.WFDLDS 12:11
PROVIDERS: PCP Family Medicine; Visit Provider Family Medicine
DX: Z00.00 Encounter for general adult medical examination without abnormal findings (principal); E53.8 Deficiency of other specified B group vitamins; I10 Essential (primary) hypertension; E55.9 Vitamin D deficiency, unspecified; R53.83 Other fatigue; R03.0 Elevated blood-pressure reading, without diagnosis of hypertension; R74.8 Abnormal levels of other serum enzymes; G47.10 Hypersomnia, unspecified; M79.10 Myalgia, unspecified site
CPT/HCPCS: 36415; 80053; 80061; 81003; 82043; 82306; 82570; 82607; 82746; 84443; 85025; 85652; 86038; 86039; 86141; 86431

== ENCOUNTER 2024-12-10 12:11 | Outpatient (AMB) | payer OTHER, SELFPAY ==
--- NOTE | 2024-12-10 12:13 | A.OFFPC_ITS ---
Vital Signs 12/10/24 12:18 Height 5 ft 10 in Weight 227 lb BMI 32.6 BP 155/83 H Blood Pressure Location Rt brachial Position Sitting Respiration 16 Pulse 67 Pulse Source Pulse Oximeter Temp 97.9 F Temp Source Temporal Artery Scan Pulse Oximetry (%) 97 Oxygen Delivery Method Room Air Intake Visit Reasons: f/u BP, liver enzymes Intake Note: patient here for follow up on BP and liver enzymes Senior Engineering Specialist Required: No Allergies No Known Allergies Allergy (Verified 12/10/24 12:17) Tobacco use date assessed: 12/10/24 Dental Screening Dental Screen Date: 12/10/24 Did you have a dental visit in the last 12 months?: Yes Did you have a dental problem in the last 6 months where you did not have access to dental care?: No Was dental information given to patient?: Patient has dentist HPI f/u BP, liver enzymes HPI Details 59 y/o male presents to f/u labs, blood pressure. Labs drawn 11/14/24. Reviewed labs with pt. Liver enzymes improved and now within the normal range. Triglycerides 148. TC 148. LDL 89. HDL low at 30. BP today 155/83, 67p. Pt notes fatigue. He says that he sleeps soundly but that he feels uncomfortable all night and does not feel rested. He works 2nd shift. He adamantly does not want to look in to if he might have sleep apnea. PFSH Surgical History Hx of cholecystectomy Family History Maternal Grandfather Heart trouble Paternal Grandfather Substance abuse Social History Housing: House Patient Tobacco Use Status: Never used Tobacco e-Cigarette/Vaping Use: Never Used service: No Current occupational status: employed Current occupation: postal service Current occupational exposures/hazards: No Cognitive needs: No Hearing needs: No Vision needs: No Questionnaire Thrive Questionnaire Date Thrive assessed: 08/05/24 ULI-7 AMB Questionnaire ULI-7 Date ULI - 7 assessed: 08/05/24 Source: Developed by Drs. Kyle Fields, Kristen BDeric Meléndez and colleagues, with an educational humberto from [employer]. Review of Systems Const Denies chills, Denies fatigue, Denies fever(s), Denies headache(s) and Denies weakness ENT Denies dizziness and Denies headache(s) Card Denies dyspnea Resp Denies cough, Denies dyspnea, Denies wheezing and Denies other (shortness of breath) Musc Denies numbness and Denies tingling Neuro Denies dizziness, Denies headache(s), Denies numbness, Denies tingling and Denies weakness Psych Denies anxiety and Denies depression Endo Denies fatigue Aller/Immun Denies wheezing Physical exam (Primary Care) Vital Signs: Last Vital Signs Temp 97.9 F 12/10/24 12:18 Pulse 67 12/10/24 12:18 Resp 16 12/10/24 12:18 BP 155/83 H 12/10/24 12:18 Pulse Ox 97 12/10/24 12:18 Oxygen Delivery Method Room Air 12/10/24 12:18 BMI result Body Mass Index 32.6 Tobacco/Smoking Status: Tobacco use Status Tobacco use date assessed 12/10/24 12/10/24 12:23 Patient Tobacco Use Status Never used Tobacco 12/10/24 12:17 e-Cigarette/Vaping Use Never Used 12/10/24 12:17 Thrive Assessment: Date of Thrive Assessment Date Thrive assessed 08/05/24 12/10/24 12:17 Const General: well developed; No acute distress Nutritional Appearance: well nourished Orientation/consciousness: patient oriented x3 [facility] Head: Yes normocephalic and Yes atraumatic Eyes General: appearance normal, both eyes and all related structures Pupils: Equal, round and reactive pupils present EOM: EOMs intact bilaterally Resp Effort & Inspection: normal respiratory effort Auscultation: clear to auscultation bilaterally Cardio Rate: regular rate Rhythm: regular rhythm Heart sounds: S1 normal heart sound present, S2 normal heart sound present, no gallops, no murmurs and no rubs Neuro General: patient oriented x3 and gait normal Cranial nerves: Yes Equal, round and reactive pupils present Psych Affect: normal affect Coding Level of Care Code Est Pt Level 5 (43993) Diagnoses Elevated blood pressure reading R03.0 Elevated liver enzymes R74.8 Fatigue R53.83 Hypersomnia G47.10 Myalgia M79.10 Assessment & Plan Assessment & Plan (1) Elevated blood pressure reading: Code(s): R03.0 - Elevated blood-pressure reading, without diagnosis of hypertension Category: Medical Plan: Giving him a script for a blood pressure monitor. He will let me know if blood pressures are higher than 140/90 Also advised exercise, weight loss and avoiding salt/sodium in diet (2) Elevated liver enzymes: Code(s): R74.8 - Abnormal levels of other serum enzymes Category: Medical Plan: This has resolved Work at at least 64-72 oz of water daily (3) Fatigue: Code(s): R53.83 - Other fatigue Category: Medical Plan: Possible sleep apnea but patient declines investigation Checking inflammatory markers and autoimmune markers Encouraged he sleeps on his side [employer] sleep hygiene Get plenty of exercise Will continue monitor (4) Hypersomnia: Code(s): G47.10 - Hypersomnia, unspecified Category: Medical Plan: As above (5) Myalgia: Code(s): M79.10 - Myalgia, unspecified site Category: Medical Plan: As above, checking inflammatory markers and autoimmune markers Will follow-up at his next visit or call him if action is required sooner Orders: Orders Comprehensive [place]. Panel Fast 12/10/24 Z00. - Encounter for general adult medical examination without abnormal findings Lipid Panel 12/10/24 Z00. - Encounter for general adult medical examination without abnormal findings Microalbumin, Random (w Creat) 12/10/24 I10 - Essential (primary) hypertension Vitamin B12 and Folate 12/10/24 E53.8 - Deficiency of other specified B group vitamins Erythrocyte Sedimentation Rate 12/10/24 M79.10 - Myalgia, unspecified site Rheumatoid Factor 12/10/24 M79.10 - Myalgia, unspecified site Complete Blood Count Auto Diff 12/10/24 Z00. - Encounter for general adult medical examination without abnormal findings TSH reflex Free T4 12/10/24 Z00. - Encounter for general adult medical examination without abnormal findings UA CC w/rflx Micro + Cult 12/10/24 Z00.00 - Encounter for general adult medical examination without abnormal findings Vitamin D 25-OH Total 12/10/24 E55.9 - Vitamin D deficiency, unspecified WILLY Reflex Titer and Pattern 12/10/24 M79.10 - Myalgia, unspecified site CRP High Sensitivity 12/10/24 M.10 - Myalgia, unspecified site Prostate Specific Antigen Scr 12/10/24 M.10 - Myalgia, unspecified site, Z12.5 - Encounter for screening for malignant neoplasm of prostate Medications: New blood pressure monitor Automatic, Digital. Dx: I10. Daily As directed, 999 days/lifetime 1 ea 0RF I10 - Essential (primary) hypertension blood pressure monitor Automatic, Digital. Dx: I10. Daily As directed, 999 days/lifetime 1 ea 0RF I10 - Essential (primary) hypertension
[2024-12-10 12:18] VITALS: BP 155/83; PULSE 67; RESP 16; TEMP 36.6; O2SAT 97; BMI 32.6
--- OUTSIDE RECORDS SUMMARY | 2024-12-10 13:41 | XMS_ITS | Clinical Summary ---
Author Organization [facility] Address [address] [place] [address] Care Team Providers Care Cruise Coordinator Name Role Phone Kera Napier MD Primary Care Provider [phone] Surgical History Surgery Date Site/Laterality Comments TONSILLECTOMY PROCEDURE: HISTORICAL TONSILLECTOMY OTHER SURGICAL HISTORY PROCEDURE: [place] UNLISTED PX SKIN MUC MEMBRANE & SUBQ [...] Other: scoliosis Daughter Coronary artery disease Father [place] 6 0s or 70s, dementia, skin cancer [...] Health Maintenance Due Date Last Done Comments Colorectal Cancer Screening: Colonoscopy 1965 Hepatitis B Vaccines (1 of 3 - 19+ 3-dose series) 1984 Pneumococcal Vaccine: 50+ Ye ars (1 of 1 - PCV) 2015 Zoster Vaccines (1 of 2) 2015 DTaP,Tdap,and Td Vaccines (2 - Td or Tdap) 01/28/2022 01/29/2012 Cholesterol Screening (Lipid Panel) 02/08/2022 HIV Screening 02/08/2022 Hepatitis C Screening 02/08/2022 Social Influencers of Health Screening 02/08/2022 Hypertension/CHF/CAD Annual BMP Blood Test 02/19/2022 Depression Screening 03/12/2024 COVID-19 Vaccine (1 - 2023-2 5 season) 2024 Influenza Vaccine [...] age to complete this topic Care Teams Cruise Coordinator Relationship Specialty Start Date End Date Kera Napier MD [address] [place] [id number] PCP - General Internal Medicine 08/04/20
== END 2024-12-10 13:44 | disposition home or self-care (01) ==
LOC: HO.HMCFM 12:11
PROVIDERS: PCP Family Medicine; Visit Provider Family Medicine
DX: R03.0 Elevated blood-pressure reading, without diagnosis of hypertension (principal); R74.8 Abnormal levels of other serum enzymes; R53.83 Other fatigue; G47.10 Hypersomnia, unspecified; M79.10 Myalgia, unspecified site

== ENCOUNTER 2025-01-23 15:54 | Outpatient (AMB) | payer OTHER, SELFPAY ==
--- NOTE | 2025-01-23 15:58 | A.OFFPC_ITS ---
Vital Signs 01/23/25 16:01 Height 5 ft 10 in Weight 223 lb 8 oz BMI 32.1 BP 142/90 H Blood Pressure Location Rt brachial Position Sitting Respiration 16 Pulse 91 Pulse Source Pulse Oximeter Temp 98.6 F Temp Source Temporal Artery Scan Pulse Oximetry (%) 96 Oxygen Delivery Method Room Air Intake Visit Reasons: Cpe Intake Note: James presents in the office today for his annual physical. Allergies No Known Allergies Allergy (Verified 01/23/25 16:00) Medication List - Last Reconciled 01/23/25 by Ethan Back MD blood pressure monitor Automatic, Digital. Dx: I10. Daily As directed, 999 days/lifetime losartan 25 mg PO DAILY 90 days Tobacco use date assessed: 01/23/25 Dental Screening Dental Screen Date: 01/23/25 Did you have a dental visit in the last 12 months?: Yes Did you have a dental problem in the last 6 months where you did not have access to dental care?: No Was dental information given to patient?: Patient has dentist HPI Cpe HPI Details Patient presents for complete physical exam and to review repeat labs Reviewed labs with patient: Liver enzymes are improving Inflammatory markers for fatigue were unremarkable HDL remains low Fasting blood sugar and triglycerides are mildly elevated PSA was not drawn though it was ordered. Patient notes fatigue is not so bad anymore. He did get a blood pressure monitor and this shows that his blood pressures are running a bit high at home, per patient. No new complaints PFSH Surgical History Hx of cholecystectomy Family History Maternal Grandfather Heart trouble Paternal Grandfather Substance abuse Social History (Updated 01/23/25 @ 16:01 by Jessica Guzman CMA) Housing: House Alcohol intake: never Patient Tobacco Use Status: Never used Tobacco e-Cigarette/Vaping Use: Never Used Second Hand Smoke Exposure: Yes service: No Current occupational status: employed Current occupation: postal service Current occupational exposures/hazards: No Cognitive needs: No Hearing needs: No Vision needs: No Questionnaire PHQ-9 Over the last 2 weeks, how often have you been bothered by any of the following problems? 1. Little interest or pleasure in doing things: not at all 2. Feeling down, depressed, or hopeless: not at all 3. Trouble falling or staying asleep, or sleeping too much: not at all 4. Feeling tired or having little energy: not at all 5. Poor appetite or overeating: not at all 6. Feeling bad about yourself - or that you are a failure or have let yourself or your family down: not at all 7. Trouble concentrating on things, such as reading the newspaper or watching television: not at all 8. Moving or speaking so slowly that other people could have noticed. Or the opposite - being so fidgety or restless that you have been moving around a lot more than usual: not at all 9. Thoughts that you would be better off or of hurting yourself in some way: not at all Total score: 0 Depression Screening Interpretation: Negative Depression Screening Done: Yes 19822 - PHQ-9 Billing: Yes Source: Developed by Drs. Kyle Fields, Kristen Georges, Deric Caputo and colleagues, with an educational humberto from [employer]. Thrive Questionnaire Date Thrive assessed: 01/23/25 I am a: Patient What is your living situation today?: I have a steady place to live Within the past 12 months, did the food you bought not last and you didn't have the money to get more?: Never true Within the past 12 months, did you worry whether your food would run out before you got money to buy more?: Never true Do you have trouble paying for medicines?: No Do you have trouble getting transportation to medical appointments?: No Do you have trouble paying your heating and electricity bill?: No Do you have trouble taking care of your child, family member or friend?: No Do you have trouble with day-to-day activities such as bathing, preparing meals, shopping, managing finances, etc.?: No Are you currently unemployed and looking for a job?: No Are you interested in more education?: No Please select the resources that you would like help with: None Currently or been in a relationship where the following occur: No concerns reported THRIVE Score: 0 AUDIT C Alcohol Use Questionnaire (AUDIT-C) 1. How often do you have a drink containing alcohol?: Never 3. How often do you have six or more drinks on one occasion?: Never Total Score: 0 ULI-7 AMB Questionnaire ULI-7 Date ULI - 7 assessed: 01/23/25 Feeling nervous, anxious, or on edge: 0 = Not at all Not being able to stop or control worryin = Not at all Worrying too much about different things: 0 = Not at all Trouble relaxin = Not at all Being so restless that it is hard to sit still: 0 = Not at all Becoming easily annoyed or irritable: 0 = Not at all Feeling afraid as if something awful might happen: 0 = Not at all Total ULI-7 score (0-4 normal; 5-9 mild; 10-14 moderate; 15-21 severe): 0 Source: Developed by Drs. Kyle Fields, Kristen Georges, Deric Caputo and colleagues, with an educational humberto from [employer]. ULI-7 Assessment Billing ULI-7 Assessment Tool: ULI-7 Assessment 37099 Review of Systems Const Denies chills, Denies fatigue, Denies fever(s), Denies headache(s) and Denies weakness Eyes Denies change in vision ENT Denies dizziness, Denies headache(s), Denies hearing loss, Denies nasal congestion, Denies sinus pain, Denies sinus pressure and Denies sore throat Card Denies chest pain, Denies lightheadedness, Denies dyspnea and Denies other (palpitations) Resp Denies cough, Denies dyspnea and Denies wheezing GI Denies abdominal pain, Denies melena, Denies hematochezia, Denies change in bowel habits, Denies dyspepsia and Denies nausea Denies hematuria and Denies dysuria Musc Denies abnormal gait, Denies myalgias, Denies arthralgias, Denies numbness and Denies tingling Skin/Breast Denies rash, Denies unusual bruising and Denies wounds Neuro Denies abnormal gait, Denies dizziness, Denies headache(s), Denies memory loss, Denies numbness, Denies Sensory deficit (Neuro), Denies tingling and Denies weakness Psych Denies anxiety, Denies depression and Denies memory loss Endo Denies cold intolerance, Denies fatigue, Denies heat intolerance, Denies polydipsia and Denies polyuria Ulisses/Lymph Denies easy bleeding and Denies easy bruising Aller/Immun Denies wheezing Physical exam (Primary Care) Vital Signs: Last Vital Signs Temp 98.6 F 01/23/25 16:01 Pulse 91 01/23/25 16:01 Resp 16 01/23/25 16:01 BP 142/90 H 01/23/25 16:01 Pulse Ox 96 01/23/25 16:01 Oxygen Delivery Method Room Air 01/23/25 16:01 BMI result Body Mass Index 32.1 Tobacco/Smoking Status: Tobacco use Status Tobacco use date assessed 01/23/25 01/23/25 16:04 Patient Tobacco Use Status Never used Tobacco 01/23/25 16:01 e-Cigarette/Vaping Use Never Used 01/23/25 16:01 PHQ-9: PHQ-9 Score PHQ-9: Total score 0 01/23/25 16:50 Depression Screening Interpretation: Negative Thrive Assessment: Date of Thrive Assessment Date Thrive assessed 01/23/25 01/23/25 16:05 Currently or been in a relationship where the following occur: No concerns reported Const General: no acute distress, well developed, alert and awake Nutritional Appearance: well nourished Orientation/consciousness: patient oriented x3 HENMT Head: Yes normocephalic and Yes atraumatic Ears: hearing grossly normal bilaterally and TM's normal bilaterally General nose exam: Normal external nose present and Normal nares present Mouth: Normal oral and palatal mucosa present and moist mucous membranes Teeth and gingiva: dentition normal Throat: Yes posterior oropharynx normal Eyes General: appearance normal, both eyes and all related structures Pupils: Equal, round and reactive pupils present and Pupil accommodation reflex normal EOM: EOMs intact bilaterally Neck Neck: Yes normal visual inspection, Yes no lymphadenopathy and Yes trachea midline Thyroid: Thyroid normal Carotids: no bruits Lymphatic: no lymphadenopathy noted Chest Chest palpation & inspection: normal inspection of the chest Resp Effort & Inspection: normal respiratory effort Auscultation: clear to auscultation bilaterally Cardio Rate: regular rate Rhythm: regular rhythm Heart sounds: S1 normal heart sound present, S2 normal heart sound present, no gallops, no murmurs and no rubs Bruits: no abdominal aortic bruits and no carotid bruits GI Palpation (GI): No Abdominal aortic bruit present, Soft to palpation, nontender, No hepatosplenomegaly present and No Rebound tenderness present Auscultation: normal bowel sounds General: Yes no CVA tenderness Back/Spine/Pelvis Back: no CVA tenderness Cervical Spine: cervical ROM normal and No Cervical spine tenderness Thoracic/Lumbar Spine: thoraco-lumbar ROM normal, No pain with thoraco-lumbar ROM, No thoracic spinal tenderness and No lumbar spinal tenderness Skin Lesions: no lesions Rashes: no rashes Trauma: no lacerations or abrasions Wounds: no wounds Nails: normal Neuro General: patient oriented x3 Cranial nerves: Yes Equal, round and reactive pupils present Cognition (Neuro): normal cognition Gait exam (Neuro): Normal gait present Motor exam (neuro): 5/5 motor strength present throughout Sensory Exam: No Sensory deficit (Neuro) Deep tendon reflexes (DTR's): Right patellar reflex intensity grade: 2+ and Left patellar reflex intensity grade: 2+ Extrem General: Yes normal to inspection and No edema Psych Appearance: grossly normal Affect: normal affect Attitude: cooperative Thought process: Normal thought process present Coding Level of Care Code Est Pt Level 3 (38340) Est Pt Prev Care 40-64y(11066) Diagnoses Adult general medical exam Z00.00 Hypertension I10 Low HDL (under 40) E78.6 Elevated liver enzymes R74.8 BMI 32.0-32.9,adult Z68.32 Fatigue R53.83 Screening for colon cancer Z12.11 Screening for prostate cancer Z12.5 Additional Codes ULI-7 Assessment Billing - ULI-7 Assessment Tool: ULI-7 Assessment 05471 ([id number]) PHQ-9 - 60312 - PHQ-9 Billing: Yes ([id number]) Assessment & Plan Assessment & Plan (1) Adult general medical exam: Code(s): Z00.00 - Encounter for general adult medical examination without abnormal findings Category: Medical Plan: 59-year-old male presents for complete physical exam Encouraged healthy diet with active lifestyle and plenty of exercise Encouraged weight loss (2) Hypertension: Code(s): I10 - Essential (primary) hypertension Category: Medical Plan: Patient notes that his blood pressures are high at home and blood pressure is high here in the office. I sent a script for losartan. Patient is apprehensive and not certain that he will try it. Also encouraged weight loss and exercise Avoid salt and sodium (3) Low HDL (under 40): Code(s): E78.6 - Lipoprotein deficiency Category: Medical Plan: HDL is again low Encouraged increase in ratio of [place] 3 fatty acids in diet Encouraged weight loss and exercise (4) Elevated liver enzymes: Code(s): R74.8 - Abnormal levels of other serum enzymes Category: Medical Plan: Liver enzymes have improved Encouraged good hydration and weight loss Will continue to monitor (5) BMI 32.0-32.9,adult: Code(s): Z68.32 - Body mass index [BMI] 32.0-32.9, adult Category: Medical Plan: Encouraged weight loss (6) Fatigue: Code(s): R53.83 - Other fatigue Category: Medical Plan: This has been improving Encouraged good quality sleep and exercise May have some sleep apnea but declines investigation. Encouraged weight loss (7) Screening for colon cancer: Code(s): Z12.11 - Encounter for screening for malignant neoplasm of colon Category: Medical Plan: Sent Cologuard test (8) Screening for prostate cancer: Code(s): Z12.5 - Encounter for screening for malignant neoplasm of prostate Category: Medical Plan: PSA was not drawn/run despite being ordered at last visit. Will draw with next lab draw in a few months. Orders: Orders Prostate Specific Antigen Scr Today Z12.5 - Encounter for screening for malignant neoplasm of prostate Lipid Panel Today E78.6 - Lipoprotein deficiency, Z00.00 - Encounter for general adult medical examination without abnormal findings UA CC w/rflx Micro + Cult Today I10 - Essential (primary) hypertension, Z00.00 - Encounter for general adult medical examination without abnormal findings Comprehensive [place]. Panel Fast Today I10 - Essential (primary) hypertension, Z00.00 - Encounter for general adult medical examination without abnormal findings Referrals Cologuard Test Z12.11 - Encounter for screening for malignant neoplasm of colon, Z12.12 - Encounter for screening for malignant neoplasm of rectum Medications: New losartan 25 mg PO DAILY 90 tabs 2RF 90 days
[2025-01-23 16:01] VITALS: BP 142/90; PULSE 91; RESP 16; TEMP 37; O2SAT 96; BMI 32.1
--- OUTSIDE RECORDS SUMMARY | 2025-01-24 00:51 | XMS_ITS | Clinical Summary ---
Author Organization [facility] Address [address] [place] [address] Care Team Providers Care Stem Teacher Name Role Phone Kera Napier MD Primary Care Provider [phone] Surgical History Surgery Date Site/Laterality Comments TONSILLECTOMY PROCEDURE: HISTORICAL TONSILLECTOMY OTHER SURGICAL HISTORY PROCEDURE: NE UNLISTED PX SKIN MUC MEMBRANE & SUBQ [...] Other: scoliosis Daughter Coronary artery disease Father [place] 6 0s or 70s, dementia, skin cancer [...] Depression Screening 03/12/2024 COVID-19 Vaccine (1 - 2024-2 6 season) 2024 Influenza Vaccine (#1) 2024 RSV [...] age to complete this topic Care Teams Stem Teacher Relationship Specialty Start Date End Date Kera Napier MD [address] [place] [id number] PCP - General Internal Medicine 08/04/20
== END 2025-01-23 16:48 | disposition home or self-care (01) ==
LOC: HO.HMCFM 15:55
PROVIDERS: PCP Family Medicine; Visit Provider Family Medicine
DX: Z00.00 Encounter for general adult medical examination without abnormal findings (principal); I10 Essential (primary) hypertension; E78.6 Lipoprotein deficiency; E66.811 Obesity, class 1; Z68.32 Body mass index [BMI] 32.0-32.9, adult; R53.83 Other fatigue; R94.5 Abnormal results of liver function studies; Z12.11 Encounter for screening for malignant neoplasm of colon

== ENCOUNTER → 2025-01-23 15:54 | Outpatient (BNVA) | payer OTHER, SELFPAY | PROVIDERS: PCP Family Medicine; Visit Provider Family Medicine | DX: Z00.00 Encounter for general adult medical examination without abnormal findings (principal); I10 Essential (primary) hypertension; E78.6 Lipoprotein deficiency; R74.8 Abnormal levels of other serum enzymes; R53.83 Other fatigue | CPT/HCPCS: 96127 ==